=== PATIENT | male | born 1940 | race Caucasian/White ===

== ENCOUNTER 2018-12-04 12:45 | Day surgery (SDC) | payer MEDICARE, OTHER ==
[~2018-12-04] VITALS: Ht 180.3 cm; Wt 100.9 kg
[~2018-12-04 12:45] MED LIST: AMLO10 PO; ANORO ELLIPTA1 EACH INH; AVANDIA; BENZ100A PO; Bupropion Xl150 MG PO; DOXY100 PO; FLUSAL2505 IH; FURO20 PO; GLYBURIDE; HYDACE5 PO; HYDGUAL120 PO; INSULANPEN SC; LIPITOR; LO-DOSE ASPIRIN81 MG PO; LOSA50 PO; LOSHYD; LOSHYD100 PO; METF500 PO; METO50 PO; NAPR500 PO; Novolog100 UNIT/2 SC; OXYB5; POTCHL20ER PO; PRAV40 PO; ROSI2 PO; SPIR25; SPIR25 PO; TAMS.4ER PO; TEMA30 PO; TESTOSTERONE; Ventolin5 MG/1 ML INH
[2018-12-04] MEDS ORDERED: NEBI10 (13:39)
== END 2018-12-04 15:06 | disposition home or self-care (01) ==
LOC: ORSCSDS 12:45
PROVIDERS: Internal Medicine Gastroenterology
PROC: 0D757ZZ Dilation of Esophagus, Via Natural or Artificial Opening (ICD-10-PCS; principal; 2018-12-04 14:00)
PROC: 0DB68ZX Excision of Stomach, Via Natural or Artificial Opening Endoscopic, Diagnostic (ICD-10-PCS; principal; 2018-12-04 14:00)
PROC: 0DB58ZX Excision of Esophagus, Via Natural or Artificial Opening Endoscopic, Diagnostic (ICD-10-PCS; principal; 2018-12-04 14:00)
DX: R13.14 Dysphagia, pharyngoesophageal phase (principal); K22.70 Barrett's esophagus without dysplasia; K29.70 Gastritis, unspecified, without bleeding; K22.2 Esophageal obstruction; I25.10 Atherosclerotic heart disease of native coronary artery without angina pectoris; I10 Essential (primary) hypertension; G47.33 Obstructive sleep apnea (adult) (pediatric); F17.210 Nicotine dependence, cigarettes, uncomplicated; Z79.899 Other long term (current) drug therapy; Z79.82 Long term (current) use of aspirin
CPT/HCPCS: 82947; 87081; 88305; 88312; J2704; J7120

== ENCOUNTER 2020-07-16 13:38 | Inpatient (IN) | payer MEDICARE, OTHER ==
[~2020-07-16] VITALS: Ht 182 cm; Wt 87.5 kg
[~2020-07-16 13:38] MED LIST changes: -Bupropion Xl150 MG PO; -INSULANPEN SC; -LOSA50 PO; -METF500 PO; -Novolog100 UNIT/2 SC; -SPIR25 PO; -TAMS.4ER PO; -TEMA30 PO
[2020-07-16 15:23] LABS: BASOPHILS ABSOLUTE AUTO 0.05 K/mm3 (0.00-0.23); BASOPHILS PERCENT AUTO 0 % (0-2); EOSINOPHILS PERCENT AUTO 0 % (0-6); Hemoglobin 20.6 g/dL (13.5-17.5); IMMATURE GRAN ABSOLUTE AUTO 0.14 K/mm3 (0.00-0.10); IMMATURE GRAN PERCENT AUTO 1 % (0-1); LYMPHOCYTES ABSOLUTE AUTO 0.45 K/mm3 (0.84-5.20); LYMPHOCYTES PERCENT AUTO 3 % (21-46); MONOCYTES PERCENT AUTO 6 % (4-13); Mean Corpuscular HGB 30.6 pg (26.0-34.0); Mean Corpuscular HGB Conc 32.1 g/dL (31.5-36.5); Mean Corpuscular Volume 95 fL (80-100); Mean Platelet Volume 9.5 fL (9.1-12.4); NEUTROPHILS ABSOLUTE AUTO 11.71 K/mm3 (1.96-9.15); NEUTROPHILS PERCENT AUTO 89 % (41-73); Platelet Count 223 K/mm3 (150-400); RDW Coefficient Variation 14.6 % (11.7-14.2); RDW Standard Deviation 48.2 fL (35.1-46.3); Red Blood Cell Count 6.73 M/mm3 (4.30-5.90); White Blood Cell Count 13.15 K/mm3 (4.00-11.30)
[2020-07-16 15:27] LABS: Hematocrit 64.2 % (37.0-53.0)
[2020-07-16 15:45] LABS: Magnesium, Blood 2.5 mg/dL (1.6-2.4)
[2020-07-16 15:46] LABS: Troponin I 0.024 ng/mL (0.000-0.040)
[2020-07-16 15:47] LABS: Albumin, Blood 2.9 g/dL (3.4-5.0); Albumin/Globulin Ratio 0.6 (0.8-1.8); Bilirubin, Total 1.2 mg/dL (0.1-1.0); Bun/Creatinine Ratio 43.9 (12.0-20.0); Calcium, Blood 10.7 mg/dL (8.5-10.1); Creatinine, Blood 1.64 mg/dL (0.60-1.20); Globulin, Blood 4.6 g/dL (2.2-4.0); Potassium, Blood 4.3 mmol/L (3.5-5.5); Total Protein, Blood 7.5 g/dL (6.4-8.2)
[2020-07-16 16:01] LABS: Creatine Kinase MB 8.7 ng/mL (0.0-3.6); Creatine Kinase MB Index 2.5 (0.0-4.0)
[2020-07-16 16:15] LABS: Base Excess Venous -13.4 mmol/L; Bicarbonate Venous 14.7 mmol/L (24.0-30.0); PCO2 Venous 37.6 mmHg (38-42)
[2020-07-16] MEDS ORDERED: TAMS.4ER PO (16:19)
[2020-07-16] MEDS ORDERED: LOSARTAN POTAS100 M1 PO (16:19)
[2020-07-16] MEDS ORDERED: CEPH500 PO (16:20)
[2020-07-16] MEDS ORDERED: NEBI10 PO (16:20)
[2020-07-16] MEDS ORDERED: INVOKANA300 MG PO (16:20)
[2020-07-16] MEDS ORDERED: OXYB5 PO (16:20)
[2020-07-16] MEDS ORDERED: TEMA30 PO (16:21)
[2020-07-16] MEDS ORDERED: SPIR25 PO (16:21)
[2020-07-16] MEDS ORDERED: BUPR150ER PO (16:48)
[2020-07-16] MEDS ORDERED: GLUCOPHAGE1000 M1 PO (16:48)
[2020-07-16] MEDS ORDERED: GABA300 PO (16:49)
[2020-07-16] MEDS ORDERED: ALBU2.5V5 NEB (16:51)
[2020-07-16] MEDS ORDERED: NOVOLOG FL100 UNIT/2 SC (16:54)
[2020-07-16] MEDS ORDERED: BASAGLAR K100 UNIT/1 SC (16:55)
[2020-07-16 18:32] LABS: Albumin, Blood 2.6 g/dL (3.4-5.0); Anion Gap 21 mmol/L (6-16); Blood Urea Nitrogen 68 mg/dL (8-24); Bun/Creatinine Ratio 44.4 (12.0-20.0); CO2, Blood 15 mmol/L (21-32); Calcium, Blood 9.6 mg/dL (8.5-10.1); Chloride, Blood 109 mmol/L (98-108); Creatinine, Blood 1.53 mg/dL (0.60-1.20); Glomerular Filtration Rate 47 (60-); Glucose, Blood 300 mg/dL (70-99); Potassium, Blood 4.6 mmol/L (3.5-5.5); Sodium, Blood 145 mmol/L (136-145)
[2020-07-16 19:04] LABS: Adenovirus Not Detected (NOT DETECT); Coronavirus 229E Not Detected (NOT DETECT); Coronavirus HKU1 Not Detected (NOT DETECT); Coronavirus NL63 Not Detected (NOT DETECT); Coronavirus OC43 Not Detected (NOT DETECT)
[2020-07-16 19:12] LABS: Human Metapneumovirus Not Detected (NOT DETECT); Human Rhinovirus/Enterovirus Not Detected (NOT DETECT); Influenza A/H1 Not Detected (NOT DETECT); SARS-Cov-2 (COVID-19), BioFire Detected (NOT DETECT)
[2020-07-16 19:13] LABS: Bordetella pertussis Not Detected (NOT DETECT); Chlamydophila pneumoniae Not Detected (NOT DETECT); Influenza A/2009-H1 Not Detected (NOT DETECT); Influenza A/H3 Not Detected (NOT DETECT); Influenza B Not Detected (NOT DETECT); Mycoplasma pneumoniae Not Detected (NOT DETECT); Parainfluenza Virus 1 Not Detected (NOT DETECT); Parainfluenza Virus 2 Not Detected (NOT DETECT); Parainfluenza Virus 3 Not Detected (NOT DETECT); Parainfluenza Virus 4 Not Detected (NOT DETECT); Respiratory Syncytial Virus Not Detected (NOT DETECT)
--- NOTE | 2020-07-16 19:40 | NUR ---
ASSUMED CARE REPORT RECEIVED FROM MAGDIEL CEE. PT TRANSFERRED TO 310. NO ACUTE DISTRESS NOTED. APPEARS COMFORTABLE. CALL LIGHT, POSSESSIONS IN REACH, BED IN LOW POSITION WITH ALARMS ON. CONTINUE TO MONITOR.
--- NOTE | 2020-07-16 20:45 | NUR ---
SPOKE TO LAURENT DUGAN REGARDING PT'S BP READINGS, CBG LEVELS AND CLARIFIED LAB ORDERS. STATED TO ADMINISTER 2100 MEDS ORDERED AND RE-CHECK BP. ORDERS ALSO RECEIVED FOR INSULIN COVERAGE. CONTINUE TO MONITOR.
--- NOTE | 2020-07-17 02:45 | NUR ---
THIS RN NOTIFIED OF PT'S 18 BEAT RUN OF V-TACH BY [employer] PROGRAM SPECIALIST. JOSE CARLOS Root RN PROVIDING COVERAGE, IN TO SEE PT. REPORTS PT BEING ASYMPTOMATIC, HR RETURNED TO SR WITH PVCS, PACS, AND BBB, RATE OF 75. ON THIS RN'S ASSESSMENT, PT APPEARS TO BE SLEEPING COMFORTABLY, NO ACUTE DISTRESS NOTED. CONTINUE TO MONITOR.
[2020-07-17 04:56] LABS: BASOPHILS ABSOLUTE AUTO 0.03 K/mm3 (0.00-0.23); BASOPHILS PERCENT AUTO 0 % (0-2); EOSINOPHILS PERCENT AUTO 0 % (0-6); Hemoglobin 18.6 g/dL (13.5-17.5); IMMATURE GRAN ABSOLUTE AUTO 0.11 K/mm3 (0.00-0.10); IMMATURE GRAN PERCENT AUTO 1 % (0-1); LYMPHOCYTES ABSOLUTE AUTO 0.43 K/mm3 (0.84-5.20); LYMPHOCYTES PERCENT AUTO 4 % (21-46); MONOCYTES ABSOLUTE AUTO 0.48 K/mm3 (0.16-1.47); MONOCYTES PERCENT AUTO 4 % (4-13); Mean Corpuscular HGB 30.5 pg (26.0-34.0); Mean Corpuscular HGB Conc 32.8 g/dL (31.5-36.5); Mean Corpuscular Volume 93 fL (80-100); Mean Platelet Volume 9.4 fL (9.1-12.4); NEUTROPHILS ABSOLUTE AUTO 11.03 K/mm3 (1.96-9.15); NEUTROPHILS PERCENT AUTO 91 % (41-73); Platelet Count 184 K/mm3 (150-400); RDW Coefficient Variation 13.8 % (11.7-14.2); RDW Standard Deviation 47.8 fL (35.1-46.3); White Blood Cell Count 12.08 K/mm3 (4.00-11.30)
[2020-07-17 04:57] LABS: Hematocrit 56.7 % (37.0-53.0)
[2020-07-17 05:17] LABS: Troponin I 0.045 ng/mL (0.000-0.040)
[2020-07-17 05:18] LABS: Albumin, Blood 2.3 g/dL (3.4-5.0); Anion Gap 12 mmol/L (6-16); Blood Urea Nitrogen 64 mg/dL (8-24); Bun/Creatinine Ratio 46.7 (12.0-20.0); CO2, Blood 21 mmol/L (21-32); Calcium, Blood 9.2 mg/dL (8.5-10.1); Chloride, Blood 115 mmol/L (98-108); Creatinine, Blood 1.37 mg/dL (0.60-1.20); Glomerular Filtration Rate 53 (60-); Glucose, Blood 173 mg/dL (70-99); Phosphorus, Blood 3.2 mg/dL (2.5-4.9); Sodium, Blood 148 mmol/L (136-145)
--- NOTE | 2020-07-17 07:00 | NUR ---
SHIFT SUMMARY PT APPEARS TO BE RESTING COMFORTABLY, IN NO ACUTE DISTRESS. VS REVIEWED, PT HYPERTENSIVE, OTHER VS WNL. O2 SATS STABLE ON RA. NO FURTHER CARDIAC EVENTS REPORTED, NO C/O CP, PRESSURE OR SOB. PT HAS SLEPT T/O MUCH OF THE NIGHT. NO C/O PAIN. NO ACUTE NEEDS ASSESSED AT THIS TIME. CALL LIGHT, POSSESSIONS IN REACH, BED IN LOW POSITION WITH ALARMS ON. REPORT GIVEN TO MAGDIEL STANLEY.
--- NOTE | 2020-07-17 18:45 | NUR ---
PT RESTING IN BED AFTER MEDICATION ADMIN AND DINNER. PT REMAINS FRUSTRATED OVER HIS NECTAR THICK FLUID ORDER AND PUREED DIET. PT MAKES NO COMPLIANTS OF SOB THIS SHIFT, IS ALERT AND ORIENTED X3 (NOT TO LOCATION), IV RUNNING AND WNL, BED IN LOW POSITION AND CALL LIGHT WITHIN REACH. STAFF WILL CONT. TO MONITOR.
--- NOTE | 2020-07-17 19:15 | NUR ---
ASSUMED CARE RECEIVED REPORT FROM MAGDIEL STANLEY. PT LYING IN BED WATCHING TV, APPEARS COMFORTABLE, RESPS E/U. NO ACUTE NEEDS ASSESSED AT THIS TIME. CALL LIGHT, POSSESSIONS IN REACH, CONTINUE TO MONITOR.
--- NOTE | 2020-07-17 21:18 | NUR ---
PT BEHAVIOR SCOTTIE WILLIAMSON MANUFACTURING TEST ENGINEER, REPORTED PT HAD BEEN POSING VERBAL THREATS, STATING HE WAS GOING TO "THROW THE PHONE AT THE WINDOW AND BREAK IT." PT CONTINUOUSLY SHOUTING AND USING PROFANITY TOWARDS MANUFACTURING TEST ENGINEER WHILE SHE WAS IN ROOM PROVIDING CARE. THIS RN PREPARING TO ENTER PT ROOM TO ADMINISTER MEDICATIONS. RN DONNING PPE, PT YELLING AT THIS RN FROM INSIDE ROOM, STATING "WHAT ARE YOU DOING, COME ON IN HERE!" REASSURED PT THAT THIS RN IS PREPARING TO ENTER ROOM; PT CONTINUING TO SHOUT AT THIS RN, STATING, "YOU DON'T WANT TO COME IN HERE, BECAUSE YOU DON'T LIKE YOUR JOB!" UPON ENTERING ROOM, PT USING PROFANITY, STATING THAT HE IS ANGRY AT THIS RN, INTENDS TO FILE A COMPLAINT, AND THAT HE DOESN'T WANT THIS RN TO PROVIDE CARE. WHEN ASKED THE REASON FOR HIS FRUSTRATION, PT STATED, USING PROFANITY, "BECAUSE I CAN'T GET ANY SERVICE, I'VE BEEN ASKING FOR WATER THIS WHOLE TIME." WHILE ADMINISTERING MEDICATIONS, PT DEMANDING MORE SNACKS, STATING, "WHEN AM I GONNA GET IT?!" USED THERAPEUTIC COMMUNICATION AND ACTIVE LISTENING; REMINDED PT OF PHYSICIAN'S ORDERS FOR THICKENED LIQUIDS D/T ASPIRATION RISK, AND THAT MANUFACTURING TEST ENGINEER IS BRINGING REQUESTED ITEMS. PT REQUESTING TO SPEAK TO PHYSICIAN NOW, INFORMED PT THAT DOCTOR WOULD BE HERE IN THE MORNING TO DISCUSS CONCERNS R/T DIET ORDER, AND ENCOURAGED PT TO VOICE HIS FRUSTRATIONS AT THAT TIME. THIS RN SETTING LIMITS ON PT'S BEHAVIOR, REMINDING HIM THERE ARE OTHER PT'S THAT THIS RN AND MANUFACTURING TEST ENGINEER ARE PROVIDING CARE TO. PT CONTINUING TO USE PROFANITY TOWARDS THIS RN, STATING, "I DON'T CARE ABOUT THE OTHER PT'S." THIS RN REMINDED PT THAT BEHAVIOR IS INAPPROPRIATE. HAYLEE YEUNG, PAINT ROLLER WINDER, ALSO INFORMED OF PT BEHAVIOR.
--- NOTE | 2020-07-17 22:38 | NUR ---
NOTIFIED DR. EVANGELISTA OF PT'S CBG OF 340. ORDERS RECEIVED. CONTINUE TO MONITOR.
[2020-07-18 04:51] LABS: BASOPHILS ABSOLUTE AUTO 0.01 K/mm3 (0.00-0.23); BASOPHILS PERCENT AUTO 0 % (0-2); EOSINOPHILS ABSOLUTE AUTO 0.01 K/mm3 (0.00-0.68); EOSINOPHILS PERCENT AUTO 0 % (0-6); Hematocrit 47.6 % (37.0-53.0); Hemoglobin 15.8 g/dL (13.5-17.5); IMMATURE GRAN ABSOLUTE AUTO 0.04 K/mm3 (0.00-0.10); IMMATURE GRAN PERCENT AUTO 1 % (0-1); LYMPHOCYTES ABSOLUTE AUTO 0.48 K/mm3 (0.84-5.20); LYMPHOCYTES PERCENT AUTO 8 % (21-46); MONOCYTES ABSOLUTE AUTO 0.33 K/mm3 (0.16-1.47); MONOCYTES PERCENT AUTO 5 % (4-13); Mean Corpuscular HGB 30.4 pg (26.0-34.0); Mean Corpuscular HGB Conc 33.2 g/dL (31.5-36.5); Mean Corpuscular Volume 92 fL (80-100); Mean Platelet Volume 9.4 fL (9.1-12.4); NEUTROPHILS ABSOLUTE AUTO 5.27 K/mm3 (1.96-9.15); NEUTROPHILS PERCENT AUTO 86 % (41-73); Platelet Count 163 K/mm3 (150-400); RDW Coefficient Variation 13.9 % (11.7-14.2); RDW Standard Deviation 47.1 fL (35.1-46.3); White Blood Cell Count 6.14 K/mm3 (4.00-11.30)
[2020-07-18 05:12] LABS: Anion Gap 5 mmol/L (6-16); Blood Urea Nitrogen 48 mg/dL (8-24); Bun/Creatinine Ratio 45.7 (12.0-20.0); CO2, Blood 24 mmol/L (21-32); Calcium, Blood 9.1 mg/dL (8.5-10.1); Chloride, Blood 119 mmol/L (98-108); Creatinine, Blood 1.05 mg/dL (0.60-1.20); Glomerular Filtration Rate >60 (60-); Glucose, Blood 209 mg/dL (70-99); Potassium, Blood 4.2 mmol/L (3.5-5.5); Sodium, Blood 148 mmol/L (136-145)
--- NOTE | 2020-07-18 06:30 | NUR ---
THIS RN IN PT ROOM ADMINISTERING MEDICATIONS, OVEN ATTENDANT OBTAINING VS. PT O2 SATS 88-91% ON RA, O2 APPLIED AT 5L/NC, SATS INCREASED TO 93%. PT HYPERTENSIVE. DR. PALACIOS NOTIFIED OF THE ABOVE, ORDERS RECEIVED. CONTINUE TO MONITOR.
--- NOTE | 2020-07-18 06:50 | NUR ---
SHIFT SUMMARY PT ASLEEP, APPEARS TO BE BREATHING EASIER. SLEPT T/O MUCH OF NIGHT. NO CARDIAC EVENTS REPORTED OVERNIGHT, PT CONTINUES TO BE EMOTIONALLY LABILE, IRRITABLE. NS D/C'D PER ORDERS. CHANGED AND REPOSITIONED TOLERATED, PAIN MANAGED WITH MEDS PER EMAR. NO ACUTE NEEDS ASSESSED AT THIS TIME. CALL LIGHT, POSSESSIONS IN REACH, BED IN LOW POSITION WITH ALARMS ON. REPORT GIVEN TO MAGDIEL STANLEY.
--- NOTE | 2020-07-18 18:50 | NUR ---
PT RESTING IN BED AFTER DINNER AND PM MEDICATION ADMIN. PT IS ALERT AND ORIENTED X4, ALTHOUGH THERE IS UNDERLYING FORGETFULNESS HE WILL ASK THE SAME QUESTIONS OFTEN. PT IS DEMANDING BUT REMAINS COMPLIANT AND COOPERATIVE. IV LINE SL AND WNL. PT MAKES NO COMPLAINTS AT THIS TIME AND HAS UNLABORED BREATHING.
--- NOTE | 2020-07-19 03:37 | NUR ---
SHIFT SUMMARY PATIENT HAD NO ACUTE CHANGES OBSERVED. AXOX 3 AND FORGETFUL. PIV REMAINS INTACT. HYDRAULIC JACK ADJUSTER REPORTS NSR 91 AND BEDREST. DENIES PAIN, SOB, AND N/V. VSS/AFEBRILE. REPORTS INSOMNIA AND MELATONIN 5 MG GIVEN PER EMAR. DROPLET PRECAUTIONS: COVID-19+. CALL LIGHT IN REACH. BED IN LOWEST POSITION. WILL CONTINUE TO MONITOR UNTIL DAY SHIFT NURSE ASSUMES CARE.
--- NOTE | 2020-07-19 17:55 | NUR ---
SUMMARY PT IS A/O X3-4, PLEASANT/COOPERATIVE AFFECT T/O DAY. DX SEPSIS, POSS PNEUM & COVID19+. HE IS GETTING IV VANCO & COVID MEDS IV REMDESEVIR, ORAL DECADRON. LUNGS ARE SOMEWHAT COARSE/DECREASED w HACKING, COARSE COUGH, PT STATE NONPROD. HE STATE NO SHORTNESS OF BREATH @ REST. HE WAS REQUESTING ALBUTEROL NEB TX'S THIS AM HOWEVER RT EXPLAIN THAT NEBS NOT INDICATED w COVID19, HE HAS ACCEPTED EXPLANATION. ST RE-EVAL SWALLOW, UPGRADE DIET TO SOFT w THIN LIQUIDS, PROVIDE SWALLOW/EATING TIPS, PT HAS HAD NO SWALLOWING ISSUES TODAY. HE PARTICIPATED w PT/OT, WAS UP IN CHAIR FOR A TIME TODAY. SBP HAS BEEN ELEVATED, 180'S, PRN HYDRALAZINE GIVEN THIS AFTERNOON. HE IS AFEBRILE.
--- NOTE | 2020-07-20 04:31 | NUR ---
SHIFT SUMMARY- PT. A&O, FORGETFUL AT TIMES. HAD NO ACUTE EVENTS OVERNIGHT, ON RA HAS OCCASIONAL COUGH, NO SOB NOTED. PT. ASLEEP MOST OF THE NIGHT, NO APPARENT DISTRESS NOTED. NO COMPLAINTS OF PAIN OR DISCOMFORT THIS SHIFT. BP ELEVATED THIS AM, MEDICATED PER EMAR. PT. INCONT, ATTENDS IN PLACE AND REPOSITIONED FOR COMFORT ALSO PRN. CALL LIGHT WITHIN REACH AND SIDE RAILS UPX2. WILL CONT TO MONITOR.
[2020-07-20 05:41] LABS: Hematocrit 49.1 % (37.0-53.0); Mean Corpuscular HGB 29.7 pg (26.0-34.0); Mean Corpuscular HGB Conc 32.6 g/dL (31.5-36.5); Mean Corpuscular Volume 91 fL (80-100); Mean Platelet Volume 9.7 fL (9.1-12.4); Platelet Count 165 K/mm3 (150-400); RDW Coefficient Variation 13.5 % (11.7-14.2); RDW Standard Deviation 45.9 fL (35.1-46.3); Red Blood Cell Count 5.38 M/mm3 (4.30-5.90); White Blood Cell Count 6.48 K/mm3 (4.00-11.30)
[2020-07-20 05:50] LABS: Anion Gap 7 mmol/L (6-16); Blood Urea Nitrogen 28 mg/dL (8-24); Bun/Creatinine Ratio 31.7 (12.0-20.0); CO2, Blood 25 mmol/L (21-32); Calcium, Blood 9.6 mg/dL (8.5-10.1); Chloride, Blood 111 mmol/L (98-108); Creatinine, Blood 0.88 mg/dL (0.60-1.20); Glomerular Filtration Rate >60 (60-); Glucose, Blood 119 mg/dL (70-99); Potassium, Blood 4.2 mmol/L (3.5-5.5); Sodium, Blood 143 mmol/L (136-145)
[2020-07-20] MEDS ORDERED: LOSARTAN-HCTZ1 EACH PO (08:09)
[2020-07-20] MEDS ORDERED: HYDCHL25 PO (08:10)
[2020-07-20] MEDS ORDERED: ALBU90OI INH (08:14)
[2020-07-20] MEDS ORDERED: OMEP20ER PO (08:14)
[2020-07-20] MEDS ORDERED: ALFU10 PO (08:17)
--- NOTE | 2020-07-20 19:35 | NUR ---
SUMMARY PT IS A/O X4, PLEASANT/COOPERATIVE AFFECT. STATE WEAKNESS/FATIGUE CONTINUE HOWEVER HAVE IMPROVED SOMEWHAT. HE IS UP 1 ASSIST, ORIENTOR ASSISTED HIM w SHOWER TODAY. DR GOMEZ ROUNDED/ASSESSED PT, STATE PROBABLE D/C TOMORROW ON HOME IV ANTIBX, ORDER PICC. CHARGE PLACED RAMÓN THIS AFTERNOON. COVID19+, IV REMDESIVIR & PO DECADRON GIVEN TODAY. IV ANTIBX VANCO CONTINUES. LUNGS CONTINUE SOMEWHAT COARSE w OCCASIONAL COUGH HOWEVER SEEM TO BE IMPROVING, @ X'S FAINT EXP WHEEZE. BIOX 90-93% RA. CARE MANAGERS ARRANGING HOME ANTIBX, PT SON VANESA CALLED, STATE HE WILL ASSIST PT @ HOME & WILL BE HIS TRANSPORTATION TOMORROW, # ON WHITE BOARD. ELEVATED BP CONTINUES TODAY, DR GOMEZ ADD NEW BP MED. BLOOD SUGARS CONTINUE ELEVATED, MED SS + LONG ACTING INSULIN ARE ORDERED.
[2020-07-20 21:10] LABS: Vancomycin, Trough 19.7 ug/mL (5.0-10.0)
--- NOTE | 2020-07-21 03:50 | NUR ---
SHIFT SUMMARY: PATIENT IS A&OX4, PATIENT REPORTS FEELING A LITTLE STRONGER TODAY BUT REFUSES GETTING UP TO THE CHAIR. PATIENT WAS FOUND INC. OF URINE VS SPILLING URINAL. RICHIE CARE GIVEN AND LINENS CHANGED. BP'S HAVE BEEN 148/86 AND 170/90, NO PRN HYDRALAZINE GIVEN PER PARAMETERS. TOLERATING DIET WELL, ASPIRATION PRECAUTIONS MAINTAINED, NO DIFFICULTY SWALLOWING PILLS. ENHANCED PRECAUTIONS ARE MAINTAINED FOR COVID+ PATIENT.
--- NOTE | 2020-07-21 17:34 | NUR ---
SHIFT SUMMARY- PT IS A/O, PLESANT AND COOPERATIVE. HE IS EATING AND DRINKING WELL. HE IS RECIEVING IV ABX. HE HAS A NON PRODUCTIVE COUGH. HE WILL LIKELY DISCHARGE TOMORROW, AND CONTINUE ABX ON AN OUTPT BASIS. HIS BED IS IN THE LOW POSITION AND CALL LIGHT IS WITHIN REACH.
[2020-07-21 21:41] LABS: Vancomycin, Trough 23.2 ug/mL (5.0-10.0)
--- NOTE | 2020-07-22 05:39 | NUR ---
SHIFT SUMMARY PATIENT ALERT AND ORIENTED. HAD NO COMPLAINTS OF PAIN OVERNIGHT. PRN HYDRALAZINE ADMINISTERED THIS MORNING FOR SBP > 170. PATIENT WAS CONTINENT/INCONTINENT AND REQUIRED SEVERAL BED CHANGES. CONDOM CATHETER APPLIED TO HELP PATIENT OBTAIN HIS GOAL OF BETTER SLEEP TONIGHT. PICC LINE PATENT AND FLUSHED. BED IN LOWEST POSITION WITH WHEELS LOCKED AND ALARM ON. CALL LIGHT WITHIN REACH. REPORT GIVEN TO ONCOMING RN.
[2020-07-22 06:02] LABS: Vancomycin, Random 17.6 ug/mL
[2020-07-22] MEDS ORDERED: AMLO5 PO (13:14)
[2020-07-22] MEDS ORDERED: DEXA6 PO (13:15)
[2020-07-22] MEDS ORDERED: VISBIOME 112.51 EACH PO (13:17)
[2020-07-22] MEDS ORDERED: Vancomycin1 GM/2501 IV (13:17)
[2020-07-22] MEDS ORDERED: VITAMIN D31000 UNI1 PO (13:18)
--- NOTE | 2020-07-22 13:53 | NUR ---
HOME HEALTH SET-UP AND PATIENT IS OKAY TO DISCHARGE, PER JORDY FABIAN.
--- NOTE | 2020-07-22 14:48 | NUR ---
DISCHARGED HOME WITH PICC LINE IN PLACE. VERBALIZED UNDERSTANDING OF DISCHARGE PAPERWORK AND ALL QUESTIONS ANSWERED. ALL PERSONAL BELONGINGS IN PATIENT POSSESSION AT TIME OF DISCHARGE.
== END 2020-07-22 14:41 | disposition home health service (06) | DRG 871 ==
LOC: ER 13:38 → MEDS 16:36
PROVIDERS: Emergency Medicine; Internal Medicine; Nurse Practitioner Acute Care; Pharmacist; ADMIT Internal Medicine
PROC: XW043E5 Introduction of Remdesivir Anti-infective into Central Vein, Percutaneous Approach, New Technology Group 5 (ICD-10-PCS; principal; 2020-07-16)
DX: A41.89 Other specified sepsis (principal); G92 Toxic encephalopathy; J12.82 Pneumonia due to coronavirus disease 2019; U07.1 COVID-19; J13 Pneumonia due to Streptococcus pneumoniae; E87.2 Acidosis; N17.9 Acute kidney failure, unspecified; R65.20 Severe sepsis without septic shock; E86.0 Dehydration; F32.9 Major depressive disorder, single episode, unspecified; G31.84 Mild cognitive impairment of uncertain or unknown etiology; G47.00 Insomnia, unspecified; G47.33 Obstructive sleep apnea (adult) (pediatric); I10 Essential (primary) hypertension; I25.10 Atherosclerotic heart disease of native coronary artery without angina pectoris; J44.9 Chronic obstructive pulmonary disease, unspecified; K59.00 Constipation, unspecified; N40.0 Benign prostatic hyperplasia without lower urinary tract symptoms; R13.10 Dysphagia, unspecified; Z95.1 Presence of aortocoronary bypass graft; Z79.01 Long term (current) use of anticoagulants; W18.30XA Fall on same level, unspecified, initial encounter; Z87.891 Personal history of nicotine dependence
CPT/HCPCS: 0202U; 36415; 36569; 70450; 71045; 71046; 80048; 80053; 80069; 80202; 82550; 82553; 82803; 82947; 83605; 83735; 83880; 84145; 84484; 85025; 85027; 85379; 85651; 87040; 87077; 87186; 92526; 92610; 93005; 93010; 94640; 94760; 96365; 96366; 96367; 96375; 97110; 97116; 97161; 97530; 99285-25; A9270; C1751; J0456; J0696; J1650; J3010; J3370; J7030; J7050

== ENCOUNTER 2020-08-10 20:53 | Inpatient (IN) | payer MEDICARE, OTHER ==
[~2020-08-10] VITALS: Ht 170.2 cm; Wt 87.1 kg
[~2020-08-10 20:53] MED LIST changes: +ALBU2.5V5 NEB; +ALBU90OI INH; +ALFU10 PO; +AMLO5 PO; +BASAGLAR K100 UNIT/1 SC; +BUPR150ER PO; +CEPH500 PO; +DEXA6 PO; +GABA300 PO; +GLUCOPHAGE1000 M1 PO; +HYDCHL25 PO; +INVOKANA300 MG PO; +LOSARTAN POTAS100 M1 PO; +LOSARTAN-HCTZ1 EACH PO; +NEBI10 PO; +NOVOLOG FL100 UNIT/2 SC; +OMEP20ER PO; +OXYB5 PO; +SPIR25 PO; +TAMS.4ER PO; +TEMA30 PO; +VISBIOME 112.51 EACH PO; +VITAMIN D31000 UNI1 PO; +Vancomycin1 GM/2501 IV
[2020-08-10] MEDS ORDERED: NEBI10 PO (21:13)
[2020-08-10 21:43] LABS: BASOPHILS ABSOLUTE AUTO 0.07 K/mm3 (0.00-0.23); BASOPHILS PERCENT AUTO 1 % (0-2); EOSINOPHILS ABSOLUTE AUTO 0.12 K/mm3 (0.00-0.68); EOSINOPHILS PERCENT AUTO 2 % (0-6); Hematocrit 44.1 % (37.0-53.0); IMMATURE GRAN ABSOLUTE AUTO 0.06 K/mm3 (0.00-0.10); IMMATURE GRAN PERCENT AUTO 1 % (0-1); LYMPHOCYTES ABSOLUTE AUTO 0.51 K/mm3 (0.84-5.20); LYMPHOCYTES PERCENT AUTO 9 % (21-46); MONOCYTES ABSOLUTE AUTO 0.29 K/mm3 (0.16-1.47); MONOCYTES PERCENT AUTO 5 % (4-13); Mean Corpuscular HGB 30.7 pg (26.0-34.0); Mean Corpuscular Volume 90 fL (80-100); Mean Platelet Volume 8.9 fL (9.1-12.4); NEUTROPHILS ABSOLUTE AUTO 4.74 K/mm3 (1.96-9.15); NEUTROPHILS PERCENT AUTO 82 % (41-73); Platelet Count 137 K/mm3 (150-400); RDW Coefficient Variation 14.8 % (11.7-14.2); RDW Standard Deviation 49.6 fL (35.1-46.3); Red Blood Cell Count 4.88 M/mm3 (4.30-5.90); White Blood Cell Count 5.79 K/mm3 (4.00-11.30)
[2020-08-10 22:00] LABS: Alanine Aminotransfer (ALT/SGP 24 U/L (12-78); Albumin, Blood 2.3 g/dL (3.4-5.0); Albumin/Globulin Ratio 0.7 (0.8-1.8); Alk Phos 62 U/L (50-136); Anion Gap 6 mmol/L (6-16); Aspartate Aminotrans (AST/SGOT 16 U/L (12-37); Bilirubin, Total 0.6 mg/dL (0.1-1.0); Blood Urea Nitrogen 14 mg/dL (8-24); Bun/Creatinine Ratio 14.6 (12.0-20.0); CO2, Blood 25 mmol/L (21-32); Calcium, Blood 9.4 mg/dL (8.5-10.1); Chloride, Blood 105 mmol/L (98-108); Creatinine, Blood 0.96 mg/dL (0.60-1.20); Globulin, Blood 3.1 g/dL (2.2-4.0); Glomerular Filtration Rate >60 (60-); Glucose, Blood 110 mg/dL (70-99); Potassium, Blood 4.1 mmol/L (3.5-5.5); Sodium, Blood 136 mmol/L (136-145); Total Protein, Blood 5.4 g/dL (6.4-8.2); Troponin I <0.015 ng/mL (0.000-0.040)
[2020-08-11 00:02] LABS: Influenza A, PCR NEGATIVE (NEGATIVE); Influenza B, PCR NEGATIVE (NEGATIVE); Resp Syncytial Virus, PCR NEGATIVE (NEGATIVE)
[2020-08-11 00:04] LABS: SARS-Cov-2 (COVID-19) PCR, MMC POSITIVE (NEGATIVE)
[2020-08-11 05:19] LABS: Source, Urine Voided
[2020-08-11 05:22] LABS: Bilirubin, Urine Neg (Neg); Blood, Urine Neg (Neg); Glucose Qualitative, Urine Neg (Neg); Ketones, Urine Neg (Neg); Leukocyte Esterase, Urine Neg (Neg); Nitrite, Urine Neg (Neg); Protein, Urine Neg (Neg); Urobilinogen, Urine NORM (Normal)
[2020-08-11 05:45] LABS: Appearance, Urine Clear (Clear); Color, Urine Yellow (P-Yellow)
--- NOTE | 2020-08-11 06:20 | NUR ---
SHIFT SUMMARY NEW ER ADMIT THIS SHIFT (214), NO ACUTE CHANGES SINCE ASSUMING CARE, PT HAS BEEN VERY WEAK AND SOB W/ACTIVITY, 1 ASSIST W/FWW TO USE URINAL @ BEDSIDE, AFEBRILE SINCE ASSUMING CARE, BEDRESTING W/BED ALARM ACTIVE, WILL CONT TO MONITOR UNTIL REPORT TO DAY RN.
--- NOTE | 2020-08-11 17:15 | NUR ---
PT AOX3 AND COOPERATIVE OF CARE. PT WAS VERY SLEEPY FIRST PART OF SHIFT AND DID A LOT OF RESTING. PT ALSO WAS HAVING A LOT OF TROUBLE WITH INCONTENCE AND A CONDOM CATH WAS PLACED AND HAS BEEN EFFECTIVE. PT WAS ORIGINALLY IN ROOM 307, BUT CALL LIGHT WAS NOT WORKING CORRECTLY. PT WAS THEN TRANSFERED TO 312. PT HAS BEEN TREATED FOR INCREASING CBGs. PT WAS CONCERNED IT WAS NOT HOW HE TAKES HIS INSULIN AT HOME. DR SALAZAR WAS NOTIFIED OF PT'S CONCERNS AND MADE CHANGES TO EMAR. PT HAS BEEN UP IN CHAIR FOR MEALS AND WORKED WITH PHYSICAL THERAPY WITH GAITBELT AND FRONT WHEEL WALKER. PT STATES HE IS FEELING DEPRESSED HAVING TO MAKE DECISION FOR HIS CARE AT HOME. WILL CONTINUE TO MONITOR CALL LIGHT IS WITHIN REACH.
--- NOTE | 2020-08-12 05:40 | NUR ---
PT IS ALERT, CBG AC/HS, RASH IN GROIN AREA, CONDOM CATH APPLIED FOR SKIN BREAKDOWN. PT SLEPT WELL THIS SHIFT.
[2020-08-12 08:29] LABS: BASOPHILS ABSOLUTE AUTO 0.05 K/mm3 (0.00-0.23); BASOPHILS PERCENT AUTO 1 % (0-2); EOSINOPHILS ABSOLUTE AUTO 0.27 K/mm3 (0.00-0.68); EOSINOPHILS PERCENT AUTO 5 % (0-6); Hematocrit 43.7 % (37.0-53.0); Hemoglobin 15.1 g/dL (13.5-17.5); IMMATURE GRAN ABSOLUTE AUTO 0.05 K/mm3 (0.00-0.10); IMMATURE GRAN PERCENT AUTO 1 % (0-1); LYMPHOCYTES ABSOLUTE AUTO 0.99 K/mm3 (0.84-5.20); LYMPHOCYTES PERCENT AUTO 20 % (21-46); MONOCYTES ABSOLUTE AUTO 0.56 K/mm3 (0.16-1.47); MONOCYTES PERCENT AUTO 11 % (4-13); Mean Corpuscular HGB 30.8 pg (26.0-34.0); Mean Corpuscular HGB Conc 34.6 g/dL (31.5-36.5); Mean Corpuscular Volume 89 fL (80-100); Mean Platelet Volume 9.2 fL (9.1-12.4); NEUTROPHILS ABSOLUTE AUTO 3.06 K/mm3 (1.96-9.15); NEUTROPHILS PERCENT AUTO 62 % (41-73); Platelet Count 144 K/mm3 (150-400); RDW Coefficient Variation 14.9 % (11.7-14.2); RDW Standard Deviation 48.5 fL (35.1-46.3); Red Blood Cell Count 4.91 M/mm3 (4.30-5.90); White Blood Cell Count 4.98 K/mm3 (4.00-11.30)
--- NOTE | 2020-08-12 12:41 | NUR ---
AM ASSESSMENT PT WAS VERY IRRITABLE ON ENTRY TO , C/O POOR CARE & POOR RESPONSE TO CALL SYSTEM. ISSUES & CONCERNS ADDRESSED. DR SALAZAR IN TO EXPLAIN INSULIN ORDERS & REASSURE THAT HE WILL RETURN TO HOME REGIMEN AFTER HOSP STAY. REVIEW TX'S & MEDS. DR Moe/Edna COVID19 ISOLATION PRECAUTIONS AFTER CONSULTIN w FOOD PRODUCTION MACHINE OPERATOR. REVERSING MILL ROLLER PROVIDE COMPLETE BEDBATH. ANTIFUNGAL PWDR APPLIED TO GROIN RASH. PT UP IN CHAIR MUCH OF MORNING. HE STATE NO SOB @ REST, BIOX 90% RA, LUNGS CLEAR. TELE NSR @ BBB/PAC'S, DR SALAZAR D/C TELE. PT ADVOCATE IN TO SEE PT, ADDRESS ISSUES/COMPLAINTS. PT SEEMS SATISFIED @ THIS TIME, PLEASANT AFFECT.
--- NOTE | 2020-08-12 16:35 | NUR ---
PHYTHER IN FOR TX, PT AMBULATE IN LUJAN w FWW/GB, SBA. TOLERATE WELL. TRIMMER AND REINFORCER CALL TO NOTIFY PT WILL TRANSFER TO RM 302. REPORT TO frances SPANN. PT CONTINUES PLEASANT/COOPERATIVE @ THIS TIME. VSS.
--- NOTE | 2020-08-12 18:02 | NUR ---
SHIFT SUMMARY PT TRANSFERRED TO ROOM 302 FROM 312 VIA BED. PT IS ALERT AND ORIENTED X3. NO COMPLAINTS AT THIS TIME. PT EATING DINNER. NO REQUESTS. CALL LIGHT IN REACH. WILL CONTINUE TO MONITOR.
--- NOTE | 2020-08-12 19:12 | NUR ---
PER DAY RN DR. SALAZAR WOULD LIKE THE CONDOM CATH REMOVED FROM PT. PT REFUSED TO HAVE CONDOM CATH REMOVED. PT ALSO COMPLAINING THAT HE HAD BEEN WAITING FOR A BREATHING TX, EXPLAINED TO PT THAT THE TX'S ARE SCHEDULED AND THAT HE LAST RECIEVED A TX AT 1330 AND THAT HIS NEXT SCHEDULED TX WAS DUE ANYTIME. NOTIFIED RT OF PT'S COMPLAINT. PT THEN CALLED ME TO HIS ROOM AND STATED THAT HE DID NOT WANT TO BE WOKEN IN THE MORNING FOR VITALS AND THAT HE WOULD REFUSE THEM IF WE WOKE HIM. HE ALSO REQUESTED THAT HIS LABS BE DRAWN CLOSER TO BREAKFAST TIME.
--- NOTE | 2020-08-13 04:32 | NUR ---
SHIFT SUMMARY PT IRRITABLE AT START OF SHIFT. VERY PARTICULAR ABOUT HIS ROUTINES AND BECOMES UPSET WHEN STAFF CANNOT IMMEDIATELY ASSIST HIM. HOWEVER, MOOD IMPROVED THROUGHOUT THE NIGHT. PT SLEPT THROUGH MOST OF THE NIGHT. RESPIRATIONS EVEN AND UNLABORED. PT ON RA WITH O2 SATS IN THE LOW TO MID 90'S. REDNESS TO GROIN AREA, ANTIFUNGAL POWDER APPLIED. CONDOM CATH PRESENT. PT REFUSED TO HAVE CONDOM CATH REMOVED. PT ALSO REFUSED MORNING LAB AND VITALS. SEE PREVIOUS NOTE. PT HAD AN UNEVENTFUL NIGHT. WILL CONTINUE TO MONITOR.
[2020-08-13 07:04] LABS: BASOPHILS ABSOLUTE AUTO 0.08 K/mm3 (0.00-0.23); BASOPHILS PERCENT AUTO 1 % (0-2); EOSINOPHILS PERCENT AUTO 7 % (0-6); Hematocrit 42.5 % (37.0-53.0); Hemoglobin 14.8 g/dL (13.5-17.5); IMMATURE GRAN ABSOLUTE AUTO 0.04 K/mm3 (0.00-0.10); IMMATURE GRAN PERCENT AUTO 1 % (0-1); LYMPHOCYTES PERCENT AUTO 22 % (21-46); MONOCYTES ABSOLUTE AUTO 0.74 K/mm3 (0.16-1.47); MONOCYTES PERCENT AUTO 12 % (4-13); Mean Corpuscular HGB 30.8 pg (26.0-34.0); Mean Corpuscular HGB Conc 34.8 g/dL (31.5-36.5); Mean Corpuscular Volume 89 fL (80-100); Mean Platelet Volume 9.5 fL (9.1-12.4); NEUTROPHILS ABSOLUTE AUTO 3.46 K/mm3 (1.96-9.15); NEUTROPHILS PERCENT AUTO 58 % (41-73); Platelet Count 159 K/mm3 (150-400); RDW Coefficient Variation 14.6 % (11.7-14.2); RDW Standard Deviation 47.5 fL (35.1-46.3); White Blood Cell Count 6.02 K/mm3 (4.00-11.30)
[2020-08-13 07:19] LABS: Anion Gap 5 mmol/L (6-16); Blood Urea Nitrogen 28 mg/dL (8-24); Bun/Creatinine Ratio 23.5 (12.0-20.0); CO2, Blood 29 mmol/L (21-32); Calcium, Blood 9.9 mg/dL (8.5-10.1); Chloride, Blood 100 mmol/L (98-108); Creatinine, Blood 1.19 mg/dL (0.60-1.20); Glomerular Filtration Rate >60 (60-); Glucose, Blood 129 mg/dL (70-99); Potassium, Blood 3.7 mmol/L (3.5-5.5); Sodium, Blood 134 mmol/L (136-145)
--- NOTE | 2020-08-13 17:44 | NUR ---
SHIFT SUMMARY NO ACUTE CHANGES T/O SHIFT, CALM AND COOPERATIVE c CARE, A&Ox4. PT REPORTED NO DISTRESS THIS SHIFT. REQUESTED BREATHING TX X1, DENIED SOB OR PAINS, AND O2 SATURATIONS REMAINED ABOVE 90% ON RA. CBG CONTINUE TO BE INCONSISTENT, HOSPITALIST AWARE AND CHANGED PT TO HIGH SLIDING SCALE. CONDOM CATH REMOVED THIS SHIFT, PT USING URINAL OFTEN BUT HAS OCCASSIONAL INCONTINENT VOIDS. PT LIKELY TO BE DISCHARGED TOMORROW PER HOSPITALIST. PT IS CURRENTLY LYING IN BED AND APPEARS TO BE IN NO DISTRESS. CALL LIGHT IS WITHIN REACH AND BED ALARM IS ON. PT ALSO REQUESTS TO NOT BE WOKEN UP BY LAB UNTIL AFTER 0700 AND NO VITALS TO BE TAKEN UNTIL AFTER THIS TIME EITHER. WILL REPORT THIS TO ONCOMING RN. NOTE POSTED OUTSIDE OF PT DOOR.
--- NOTE | 2020-08-14 04:15 | NUR ---
SHIFT SUMMARY ADMITTED FOR ARF. FULL CODE. HOPEFUL FOR DC TODAY. XRAY PLANNED THIS AM. HX: COVID PNEUMONIA 6 WEEKS AGO. LABILE MOODS. A&O X4. REFUSING END OF SHIFT VITAL SIGNS, PREFERING TO SLEEP. NO NEW CONCERNS THIS SHIFT.
[2020-08-14] MEDS ORDERED: INSULANPEN SC (13:50)
[2020-08-14] MEDS ORDERED: FURO20 PO (13:53)
[2020-08-14] MEDS ORDERED: PROBIOTIC PO (13:54)
[2020-08-14] MEDS ORDERED: CEFP200 PO (13:55)
--- NOTE | 2020-08-14 14:34 | NUR ---
PT DISCHARGED AT APPROX 1450 VIA WHEELCHAIR BY PROCESS LINE OPERATOR. SON, VANESA, WAS PRESENT DURING DISCHARGE. DISCHARGE INSTRUCTIONS REVIEWED WITH PT AND HIS SON. PT AND SON STATED THEY HAD NO FURTHER QUESTIONS AT THIS TIME. NEEDED RX FAXED TO PHARMACY OF PT CHOICE. IV REMOVED AND SITE APPEARED WNL. PT STATED HE HAD ALL OF HIS BELONGINGS. PT NOTIFIED THAT HH WILL CONTACT HIM.
== END 2020-08-14 14:18 | disposition home health service (06) | DRG 871 ==
LOC: ER 20:53 → MEDS 23:50
PROVIDERS: Emergency Medicine; Internal Medicine; ADMIT Internal Medicine
DX: A41.9 Sepsis, unspecified organism (principal); J18.9 Pneumonia, unspecified organism; J96.01 Acute respiratory failure with hypoxia; I50.33 Acute on chronic diastolic (congestive) heart failure; U07.1 COVID-19; J44.0 Chronic obstructive pulmonary disease with (acute) lower respiratory infection; E87.1 Hypo-osmolality and hyponatremia; I11.0 Hypertensive heart disease with heart failure; E88.09 Other disorders of plasma-protein metabolism, not elsewhere classified; E11.9 Type 2 diabetes mellitus without complications; G47.33 Obstructive sleep apnea (adult) (pediatric); G47.00 Insomnia, unspecified; I25.10 Atherosclerotic heart disease of native coronary artery without angina pectoris; N40.0 Benign prostatic hyperplasia without lower urinary tract symptoms; F32.9 Major depressive disorder, single episode, unspecified; Z79.899 Other long term (current) drug therapy; Z79.4 Long term (current) use of insulin; Z87.891 Personal history of nicotine dependence
CPT/HCPCS: 0241U; 36415; 71045; 80048; 80053; 81003; 82947; 83605; 83880; 84145; 84484; 85025; 87040; 93005; 93010; 93306; 94640; 94760; 96365; 97110; 97116; 97162; 97530; 99285-25; A9270; J0456; J0696; J1650; J1940; J2543; J7050

== ENCOUNTER → 2020-12-24 | Outpatient (CLI) | payer MEDICARE, OTHER ==
[~2020-12-24] MED LIST changes: +CEFP200 PO; +INSULANPEN SC; +PROBIOTIC PO
[2020-12-24 14:38] LABS: BASOPHILS ABSOLUTE AUTO 0.04 K/mm3 (0.00-0.23); BASOPHILS PERCENT AUTO 0 % (0-2); EOSINOPHILS ABSOLUTE AUTO 0.22 K/mm3 (0.00-0.68); EOSINOPHILS PERCENT AUTO 2 % (0-6); Hematocrit 46.4 % (37.0-53.0); Hemoglobin 15.9 g/dL (13.5-17.5); IMMATURE GRAN ABSOLUTE AUTO 0.08 K/mm3 (0.00-0.10); IMMATURE GRAN PERCENT AUTO 1 % (0-1); LYMPHOCYTES PERCENT AUTO 15 % (21-46); MONOCYTES ABSOLUTE AUTO 0.56 K/mm3 (0.16-1.47); MONOCYTES PERCENT AUTO 6 % (4-13); Mean Corpuscular HGB 30.9 pg (26.0-34.0); Mean Corpuscular HGB Conc 34.3 g/dL (31.5-36.5); Mean Corpuscular Volume 90 fL (80-100); NEUTROPHILS ABSOLUTE AUTO 7.05 K/mm3 (1.96-9.15); NEUTROPHILS PERCENT AUTO 75 % (41-73); Platelet Count 191 K/mm3 (150-400); RDW Coefficient Variation 12.5 % (11.7-14.2); RDW Standard Deviation 41.2 fL (35.1-46.3); Red Blood Cell Count 5.15 M/mm3 (4.30-5.90); White Blood Cell Count 9.35 K/mm3 (4.00-11.30)
[2020-12-24 15:01] LABS: Alanine Aminotransfer (ALT/SGP 28 U/L (12-78); Albumin, Blood 3.7 g/dL (3.4-5.0); Albumin/Globulin Ratio 1.3 (0.8-1.8); Alk Phos 59 U/L (40-126); Anion Gap 8 mmol/L (6-16); Aspartate Aminotrans (AST/SGOT 23 U/L (12-37); Bilirubin, Total 0.7 mg/dL (0.1-1.0); Blood Urea Nitrogen 42 mg/dL (8-24); Bun/Creatinine Ratio 31.8 (12.0-20.0); CO2, Blood 29 mmol/L (21-32); CPK Creatine Kinase 154 U/L (39-308); Calcium, Blood 10.1 mg/dL (8.5-10.1); Chloride, Blood 101 mmol/L (98-108); Creatinine, Blood 1.32 mg/dL (0.60-1.20); Free Thyroxine 0.91 ng/dL (0.70-1.60); Globulin, Blood 2.8 g/dL (2.2-4.0); Glomerular Filtration Rate 52 (60-); Glucose, Blood 110 mg/dL (70-99); Potassium, Blood 4.3 mmol/L (3.5-5.5); Sodium, Blood 138 mmol/L (136-145); Total Protein, Blood 6.5 g/dL (6.4-8.2)
[2020-12-24 15:05] LABS: Troponin I <0.017 ng/mL (0.000-0.040)
== END | disposition home or self-care (01) ==
LOC: LAB SHORT 14:28 → LAB 14:28
PROVIDERS: General Practice
DX: R00.2 Palpitations (principal)
CPT/HCPCS: 80053; 82550; 84439; 84443; 84484; 85025

== ENCOUNTER 2021-08-29 10:51 | Emergency (ER) | payer MEDICARE, OTHER ==
[~2021-08-29] VITALS: Ht 182.9 cm; Wt 83.9 kg
[2021-08-29 12:23] LABS: BASOPHILS ABSOLUTE AUTO 0.04 K/mm3 (0.00-0.23); BASOPHILS PERCENT AUTO 1 % (0-2); EOSINOPHILS ABSOLUTE AUTO 0.13 K/mm3 (0.00-0.68); EOSINOPHILS PERCENT AUTO 2 % (0-6); Hematocrit 43.6 % (37.0-53.0); Hemoglobin 14.2 g/dL (13.5-17.5); IMMATURE GRAN ABSOLUTE AUTO 0.07 K/mm3 (0.00-0.10); IMMATURE GRAN PERCENT AUTO 1 % (0-1); LYMPHOCYTES ABSOLUTE AUTO 1.35 K/mm3 (0.84-5.20); LYMPHOCYTES PERCENT AUTO 16 % (21-46); MONOCYTES ABSOLUTE AUTO 0.64 K/mm3 (0.16-1.47); MONOCYTES PERCENT AUTO 8 % (4-13); Mean Corpuscular HGB 30.7 pg (26.0-34.0); Mean Corpuscular HGB Conc 32.6 g/dL (31.5-36.5); Mean Corpuscular Volume 94 fL (80-100); Mean Platelet Volume 9.3 fL (9.1-12.4); NEUTROPHILS ABSOLUTE AUTO 6.33 K/mm3 (1.96-9.15); NEUTROPHILS PERCENT AUTO 74 % (41-73); Platelet Count 222 K/mm3 (150-400); RDW Coefficient Variation 13.9 % (11.7-14.2); RDW Standard Deviation 47.9 fL (35.1-46.3); Red Blood Cell Count 4.63 M/mm3 (4.30-5.90); White Blood Cell Count 8.56 K/mm3 (4.00-11.30)
[2021-08-29 12:33] LABS: Source, Urine Clean Catch
[2021-08-29 12:34] LABS: Ethanol (Alcohol), Blood, Med <3 mg/dL
[2021-08-29 12:35] LABS: Alanine Aminotransfer (ALT/SGP 40 U/L (12-78); Albumin, Blood 3.2 g/dL (3.4-5.0); Albumin/Globulin Ratio 0.9 (0.8-1.8); Alk Phos 55 U/L (50-136); Anion Gap 9 mmol/L (6-16); Aspartate Aminotrans (AST/SGOT 35 U/L (12-37); Bilirubin, Total 0.5 mg/dL (0.1-1.0); Blood Urea Nitrogen 26 mg/dL (8-24); Bun/Creatinine Ratio 31.1 (12.0-20.0); CO2, Blood 27 mmol/L (21-32); Calcium, Blood 10.4 mg/dL (8.5-10.1); Chloride, Blood 102 mmol/L (98-108); Creatinine, Blood 0.84 mg/dL (0.60-1.20); Globulin, Blood 3.4 g/dL (2.2-4.0); Glomerular Filtration Rate >60 (60-); Glucose, Blood 236 mg/dL (70-99); Potassium, Blood 4.3 mmol/L (3.5-5.5); Sodium, Blood 138 mmol/L (136-145); Total Protein, Blood 6.6 g/dL (6.4-8.2)
[2021-08-29 13:22] LABS: Bilirubin, Urine Neg (Neg); Blood, Urine 1+ (Neg); Glucose Qualitative, Urine 3+ (Neg); Ketones, Urine Neg (Neg); Leukocyte Esterase, Urine Neg (Neg); Nitrite, Urine Neg (Neg); Protein, Urine 3+ (Neg); Specific Gravity, Urine 1.015 (1.003-1.022); Urobilinogen, Urine NORM (Normal)
[2021-08-29 13:37] LABS: Appearance, Urine Hazy (Clear); Color, Urine Pale Yellow (P-Yellow)
[2021-08-29 13:38] LABS: Bacteria Rare /hpf; Mucus Light (0-Heavy); Squamous Epithelial Cells Rare /hpf (Few); White Blood Cells, Urine 0-2 /hpf (0-5)
[2021-08-29 13:39] LABS: U Amphetamine Screen Not Detected; U Barbituate Screen Not Detected; U Benzodiazapine Screen Not Detected; U Cannabinoids Screen Not Detected; U Cocaine Screen Not Detected; U Methadone Screen Not Detected; U Methamphetamine Screen Not Detected; U Opiates Screen Not Detected; U Phencyclidine Screen Not Detected
[2021-08-29 13:40] LABS: U Buprenorphine Screen Not Detected; U Oxycodone Screen Not Detected; U Propoxyphene Screen Not Detected
[2021-08-30] MEDS ORDERED: [UNRECOGNIZED DRUG - CODE] PO (22:16)
[2021-08-30] MEDS ORDERED: Toviaz8 MG PO (22:17)
[2021-08-30] MEDS ORDERED: LOSARTAN POTAS100 MG PO (22:17)
[2021-08-30] MEDS ORDERED: K-Dur10 MEQ PO (22:18)
[2021-08-30] MEDS ORDERED: BASAGLAR K100 UNIT/3 SC (22:20)
== END 2021-08-29 13:50 | disposition home or self-care (01) ==
LOC: ER 10:51
PROVIDERS: Physician Assistant
DX: R78.81 Bacteremia (principal); Z88.1 Allergy status to other antibiotic agents; Z79.899 Other long term (current) drug therapy; Z79.4 Long term (current) use of insulin; E11.9 Type 2 diabetes mellitus without complications; Z87.891 Personal history of nicotine dependence
CPT/HCPCS: 36415; 70450; 71045; 80053; 81001; 83605; 83880; 85025; 86592; 87040; 93005; 93010; G0480

== ENCOUNTER 2023-03-16 00:55 | Inpatient (IN) | payer MEDICARE, OTHER ==
[~2023-03-16] VITALS: Ht 177.8 cm; Wt 98.9 kg
[~2023-03-16 00:55] MED LIST changes: +CARV6.25 PO; -GABA300 PO; +INSULIN GL100 UNIT/2 SC; +K-Dur10 MEQ PO; +LOSARTAN POTAS100 MG PO; +Neurontin600 MG PO; +Toviaz8 MG PO; +[UNRECOGNIZED DRUG - CODE] PO
[2023-03-16 03:04] LABS: BASOPHILS ABSOLUTE AUTO 0.04 K/mm3 (0.00-0.23); BASOPHILS PERCENT AUTO 0 % (0-2); EOSINOPHILS ABSOLUTE AUTO 0.04 K/mm3 (0.00-0.68); EOSINOPHILS PERCENT AUTO 0 % (0-6); Hematocrit 48.3 % (37.0-53.0); Hemoglobin 16.4 g/dL (13.5-17.5); IMMATURE GRAN ABSOLUTE AUTO 0.11 K/mm3 (0.00-0.10); IMMATURE GRAN PERCENT AUTO 1 % (0-1); LYMPHOCYTES ABSOLUTE AUTO 1.89 K/mm3 (0.84-5.20); LYMPHOCYTES PERCENT AUTO 16 % (21-46); MONOCYTES ABSOLUTE AUTO 0.87 K/mm3 (0.16-1.47); MONOCYTES PERCENT AUTO 8 % (4-13); Mean Corpuscular HGB 31.8 pg (26.0-34.0); Mean Corpuscular Volume 94 fL (80-100); Mean Platelet Volume 9.3 fL (9.1-12.4); NEUTROPHILS ABSOLUTE AUTO 8.68 K/mm3 (1.96-9.15); NEUTROPHILS PERCENT AUTO 75 % (41-73); Platelet Count 310 K/mm3 (150-400); RDW Coefficient Variation 12.3 % (11.7-14.2); Red Blood Cell Count 5.15 M/mm3 (4.30-5.90); White Blood Cell Count 11.63 K/mm3 (4.00-11.30)
[2023-03-16 03:27] LABS: Albumin, Blood 3.6 g/dL (3.4-5.0); Albumin/Globulin Ratio 0.9 (0.8-1.8); Bilirubin, Total 0.3 mg/dL (0.1-1.0); Bun/Creatinine Ratio 33.9 (12.0-20.0); Calcium, Blood 11.1 mg/dL (8.5-10.1); Creatinine, Blood 1.12 mg/dL (0.60-1.20); Globulin, Blood 3.8 g/dL (2.2-4.0); Potassium, Blood 4.8 mmol/L (3.5-5.5); Total Protein, Blood 7.4 g/dL (6.4-8.2)
[2023-03-16 03:46] LABS: Influenza A, PCR NEGATIVE (NEGATIVE); Influenza B, PCR NEGATIVE (NEGATIVE); Resp Syncytial Virus, PCR NEGATIVE (NEGATIVE); SARS-Cov-2 (COVID-19) PCR, MMC NEGATIVE (NEGATIVE)
[2023-03-16 07:11] LABS: Base Excess Venous 8.6 mmol/L; Bicarbonate Venous 30.2 mmol/L (24.0-30.0); PCO2 Venous 63.1 mmHg (38-42); pH Blood Venous 7.34 (7.34-7.37)
[2023-03-16 08:36] VITALS: BP 162/95
[2023-03-16 13:59] VITALS: BP 152/77
--- NOTE | 2023-03-16 14:00 | NUR ---
CALLED DR MCCABE- PT WOKE ABOUT AN HOUR AGO AND WAS VERY IRRITABLE. HE WAS YELLING THAT HE HAD TO PEE AND HE WAS GOING TO PEE ON THE FLOOR. PT WAS ASSISTED WITH A URINAL, HOWEVER WAS UNABLE TO VOID. BLADDER SCAN SHOWED 421ML. PT DROPPED BACK INTO DEEP SLEEP, RECIEVED A CALL FROM TELEE PT HR RAGHAV DOWN TO 37. THIS RN WENT TO THE ROOM TO FIND THE PT SLEEPING SOUNDLY BREATHING MORE RAPIDLY THAN BEFORE, LUNG SOUNDS WHEEZY, AND CRACKLY. PT ON 3L VIA NC RESP RATE 30. HR DROPPED DOWN TO THE 30'S AGAIN WHILE THIS RN AT THE BEDSIDE SPEAKING TO [employer]. PT HAS NO BREATHING Tx ORDERED AT THIS TIME. PT IS A FULL CODE. CALLED DR MCCABE AND LEFT A MESSAGE, WAITING FOR A CALL BACK.
--- NOTE | 2023-03-16 14:10 | NUR ---
RECIEVED A CALL BACK FROM DR MCCABE- HE IS AWARE OF THE RECENT EVENT NOW, ORDER RECIEVED FOR O2 AND BD PROTOCOL
--- NOTE | 2023-03-16 14:23 | NUR ---
PT WOKE AND WAS AGGITATED- PT WAS YELLING AT STAFF AAND SWATTING AT THEM. PT RIPPED OUT HIS IV AND WAS BLEEDING ON THE PILLOWS AND SHEETS. WAS ABLE TO WRAP THE AREA TO STAUNCH THE BLOOD FLOW. PT IS YELLING AT ALL STAFF TO GET OUT OF HIS ROOM. RT CAME TO EVALUATE THE PT NO Tx INDICATED AT THIS TIME. PT LIKELY HAS ANXIETY AND NEEDS TREATMENT FOR THAT; HOWEVER THE PT HR WAS JUST IN THE 30'S SO ANXIETY MEDS MAY NOT BE ADVIASABLE. PT HAD AN INCONTINENT VOID ATTENDS AND BED SATURATED.
[2023-03-16 16:40] LABS: Source, Urine Clean Catch
[2023-03-16 17:15] LABS: Bilirubin, Urine Neg (Neg); Blood, Urine Neg (Neg); Color, Urine Yellow (P-Yellow); Glucose Qualitative, Urine 4+ (Neg); Ketones, Urine Neg (Neg); Leukocyte Esterase, Urine Neg (Neg); Nitrite, Urine Neg (Neg); Protein, Urine 3+ (Neg); Urobilinogen, Urine NORM (Normal)
[2023-03-16 17:56] LABS: Appearance, Urine Hazy (Clear); Mucus Light (0-Heavy); Red Blood Cells, Urine 0-2 /hpf (0-2); Squamous Epithelial Cells Rare /hpf (Few); White Blood Cells, Urine 0-2 /hpf (0-5)
[2023-03-16 17:57] LABS: Bacteria Mod /hpf
--- NOTE | 2023-03-16 18:20 | NUR ---
SPOKE TO DR MCCABE- THE PT PASSED THE BEDSIDE SWALLOW EVAL AND WAS GIVEN A DIET ORDER ADA HE IS DIABETIC. BG CHECKS CHANGED TO AC/HS. CALLED AND RECIEVED ORDER FOR MEDIUM CORRECTION SCALE INSULIN. PRE MEAL BG 394. WILL MEDICATE ONCE MED IS VERIFIED.
--- NOTE | 2023-03-16 18:24 | NUR ---
SHIFT SUMMARY- PT ADMITTED THROUGH THE ED. PT BECAME ALERT AROUND 1400. NURSING PERFORMED A BEDSIDE SWALLOW EVAL. PT WAS ABLE TO DRINK WATER FROM A CUP, AND A STRAW, APPLESAUCE, COLD PUDDING AND PUDDING MIXED WITH CRACKERS. PT TOLLERATED ALL WITHOUT ANY COUGH OR SIGNS OF ASPIRATION. PT HAS BEEN IN BED SINCE ARRIVAL, HE HAD ONE EPISODE OF URINARY INCONTINENCE. PT IN BED CALL LIGHT IN REACH, PT KNOWS HOW TO PUSH THE BUTTON. PT IS ON IV STEROIDS. BG ELEVATED PRIOR TO DINNER, INSULIN ORDERED AWAITING ARRIVAL TO MEDICATE. PT CURRENTLY EATING DINNER. NO S&S OF DISTRESS.
[2023-03-16 19:42] VITALS: BP 150/88
[2023-03-17 04:47] VITALS: BP 152/85
--- NOTE | 2023-03-17 05:01 | NUR ---
A/O X 2 -3 AT TIMES IS CONFUSED AND SHORT TEMPERED BUT EASILY REDIRECTED. PT CONSTANTLY DEMANDING FLUID, WATER COFFEE AND SODA, I EXPLAINED MULTIPLE TIMES THAT HIS BLOODWORK INDICATED THAT HE HAD FLUID OVERLOAD. PT DIDNT SEEM TO UNDERSTAND SO WHEN HE DEMANDED FLUIDS I WOUD TRY TO REDIRECT HIM, THIS SEEMS TO WORK PT JUST WANTED SOMETHING TO DO WHILE LAYING IN BED. ENC PT TO SLEEP SINCE HE WAS VERY TIRED AND FAMILY STATED HE HADNT SLEPT IN DAYS. URINE IS DARK CALOS AND MINIMAL, URINAL PLACED UNDER THE SHEET IN POSITION SO PT WOULDNT HAVE HARD TIME TRYING TO URINATE. PT COMFORTABLY SLEEPING
[2023-03-17 05:02] LABS: BASOPHILS ABSOLUTE AUTO 0.01 K/mm3 (0.00-0.23); BASOPHILS PERCENT AUTO 0 % (0-2); EOSINOPHILS PERCENT AUTO 0 % (0-6); Hematocrit 42.1 % (37.0-53.0); IMMATURE GRAN ABSOLUTE AUTO 0.11 K/mm3 (0.00-0.10); IMMATURE GRAN PERCENT AUTO 1 % (0-1); LYMPHOCYTES ABSOLUTE AUTO 0.87 K/mm3 (0.84-5.20); LYMPHOCYTES PERCENT AUTO 8 % (21-46); MONOCYTES ABSOLUTE AUTO 0.36 K/mm3 (0.16-1.47); MONOCYTES PERCENT AUTO 3 % (4-13); Mean Corpuscular HGB 31.7 pg (26.0-34.0); Mean Corpuscular HGB Conc 33.3 g/dL (31.5-36.5); Mean Corpuscular Volume 96 fL (80-100); Mean Platelet Volume 9.5 fL (9.1-12.4); NEUTROPHILS ABSOLUTE AUTO 9.72 K/mm3 (1.96-9.15); NEUTROPHILS PERCENT AUTO 88 % (41-73); Platelet Count 228 K/mm3 (150-400); RDW Coefficient Variation 12.1 % (11.7-14.2); RDW Standard Deviation 42.5 fL (35.1-46.3); Red Blood Cell Count 4.41 M/mm3 (4.30-5.90); White Blood Cell Count 11.07 K/mm3 (4.00-11.30)
[2023-03-17 06:04] LABS: Albumin, Blood 2.6 g/dL (3.4-5.0); Albumin/Globulin Ratio 0.8 (0.8-1.8); Bilirubin, Total 0.3 mg/dL (0.1-1.0); Calcium, Blood 9.9 mg/dL (8.5-10.1); Creatinine, Blood 1.05 mg/dL (0.60-1.20); Globulin, Blood 3.1 g/dL (2.2-4.0); Total Protein, Blood 5.7 g/dL (6.4-8.2)
[2023-03-17 07:51] VITALS: BP 178/75
[2023-03-17] MEDS ORDERED: GEMTESA75 MG PO (16:38)
[2023-03-17] MEDS ORDERED: METO25ER PO (16:56)
[2023-03-17] MEDS ORDERED: AMLO5 PO (16:57)
[2023-03-17] MEDS ORDERED: METF500 PO (16:59)
[2023-03-17] MEDS ORDERED: Crestor20 MG PO (16:59)
[2023-03-17] MEDS ORDERED: METRONIDAZOLE TOP (17:03)
[2023-03-17] MEDS ORDERED: OZEMPIC0.25 MG/02 SC (17:04)
[2023-03-17] MEDS ORDERED: KETO15TC TOP (17:04)
--- NOTE | 2023-03-17 18:43 | NUR ---
SHIFT SUMMARY: MORRO IS A&OX3. VSS, NO ACUTE EVENTS THIS SHIFT. PT IS ABLE TO MAKE HIS NEEDS KNOWN. ATTENDS IN PLACE, PT PREFERS TO USE URINAL. OFFERED TO ASSIST PT OOB TO BSC COMMODE THIS SHIFT, PT REFUSED. PT IS ABLE TO TURN AND REPOSITION HIMSELF WITH MINIMAL ASSISTANCE. HE IS TOLERATING PO INTAKE WELL, BUT REPORTS POOR APPETITE. SPUTUM CULTURE SENT, PT HAS PRODUCED SMALL AMOUNTS OF SPUTUM, USING FLUTTER VALVE. PT IS USING 3.5 L VIA NC, DOES NOT USE O2 AT HOME. PT IS LYING IN BED WITH THE CALL LIGHT IN REACH. WCTM UNTIL REPORT IS GIVEN TO BOILERMAKER HELPER RN.
[2023-03-17 19:26] VITALS: BP 168/80
--- NOTE | 2023-03-17 23:01 | NUR ---
REPORT RECEIVED PT A LITTLE MORE AGRESSIVE TODAY TO DIRECTOR OF MATERNITY SERVICES, PT VERBALLY ABUSIVE AND CALLING DIRECTOR OF MATERNITY SERVICES NAMES. i SPOKE WITH PT THAT HE WAS BEING INAPPRORIATE HE WAS NOT ALLOWED TO SPEAK TO DIRECTOR OF MATERNITY SERVICES LIKE THAT. PT DOESNT SEEM TO CARE. i TOLD DIRECTOR OF MATERNITY SERVICES SHE DIDNT HAVE TO ENTER PT ROOM THIS EVENING. PT IS CONFUSED AT TIMES SO i WILL CONT TO MONITOR.
--- NOTE | 2023-03-18 04:48 | NUR ---
PT A LITTLE MORE MANAGEABLE THIS EVENING HAS WANTED TO SLEEP MORE. HR CONSISTANTLY STAYING IN THE 30S AND 40S, O2 MONITOR PLACED IN RM INORDER TO MONITOR PT. PT ASYMPTOMATIC BALTAZAR HEART RATE, AWARE. LAB ATTEMPTING TO DRAW PT BUT PT BEGAN YELLING AND BELITTLING SCALE SHOOTER, BLOOD WAS UNABL TO BE DRAWN, REQUESTED TO HAVE LABS DRAWN AROUND BREAKFAST.
[2023-03-18 07:59] VITALS: BP 152/98
[2023-03-18 09:22] LABS: Albumin, Blood 2.6 g/dL (3.4-5.0); Albumin/Globulin Ratio 0.8 (0.8-1.8); Bilirubin, Total 0.4 mg/dL (0.1-1.0); Bun/Creatinine Ratio 37.4 (12.0-20.0); Calcium, Blood 9.9 mg/dL (8.5-10.1); Creatinine, Blood 0.86 mg/dL (0.60-1.20); Globulin, Blood 3.3 g/dL (2.2-4.0); Potassium, Blood 4.8 mmol/L (3.5-5.5); Total Protein, Blood 5.9 g/dL (6.4-8.2)
[2023-03-18 09:28] LABS: BASOPHILS ABSOLUTE AUTO 0.02 K/mm3 (0.00-0.23); BASOPHILS PERCENT AUTO 0 % (0-2); EOSINOPHILS ABSOLUTE AUTO 0.03 K/mm3 (0.00-0.68); EOSINOPHILS PERCENT AUTO 0 % (0-6); Hematocrit 44.6 % (37.0-53.0); Hemoglobin 15.3 g/dL (13.5-17.5); IMMATURE GRAN ABSOLUTE AUTO 0.17 K/mm3 (0.00-0.10); IMMATURE GRAN PERCENT AUTO 1 % (0-1); LYMPHOCYTES ABSOLUTE AUTO 1.34 K/mm3 (0.84-5.20); LYMPHOCYTES PERCENT AUTO 11 % (21-46); MONOCYTES ABSOLUTE AUTO 0.88 K/mm3 (0.16-1.47); MONOCYTES PERCENT AUTO 7 % (4-13); Mean Corpuscular HGB 31.5 pg (26.0-34.0); Mean Corpuscular HGB Conc 34.3 g/dL (31.5-36.5); Mean Corpuscular Volume 92 fL (80-100); NEUTROPHILS ABSOLUTE AUTO 10.13 K/mm3 (1.96-9.15); NEUTROPHILS PERCENT AUTO 81 % (41-73); RDW Coefficient Variation 11.9 % (11.7-14.2); RDW Standard Deviation 40.3 fL (35.1-46.3); Red Blood Cell Count 4.86 M/mm3 (4.30-5.90); White Blood Cell Count 12.57 K/mm3 (4.00-11.30)
[2023-03-18 13:02] LABS: Mean Platelet Volume 9.1 fL (9.1-12.4); Platelet Count 226 K/mm3 (150-400)
[2023-03-18 15:37] VITALS: BP 129/83
--- NOTE | 2023-03-18 17:16 | NUR ---
SHIFT SUMMARY: CBG AT LUNCH WAS 422; SPOKE TO DR. THACKER, CHANGED SSI TO HIGH SS FROM MEDIUM, ADDED GLARGINE AT HS. ALSO RECEIVED ORDERS FOR BOWEL MEDS PT STATED HE HAS NOT HAD A BM IN "ABOUT 4 DAYS." NO EVENTS ON TELEMETRY, SINUS ARRYTHMIA WITH RATE 60-80'S. LUNG SOUNDS DIM WITH SOME CRACKLES AND RHONCHI. ON O2 @ 4 L/MIN NC; DOES NOT USE OXYGEN AT HOME. REPLACED CONDOM CATH, IS HAVING GOOD OUTPUT. GOT UP TO BR X 1 WITH FWW, GAIT BELT, AND 2 PERSON ASSIST, BUT GAIT IS WEAK AND HE IS TERRIFIED OF FALLING.
[2023-03-18 19:14] VITALS: BP 124/63
--- NOTE | 2023-03-19 02:54 | NUR ---
SHIFT SUMMERY, PT RESTING IN BED AND WAS MEDICATED FOR HS. PT GIVEN MED FOR PAIN. PT SEEMS TO BE RESTING FAIRLY WELL TONIGHT. CALL LIGHT IN REACH.
[2023-03-19 05:07] VITALS: BP 151/79
[2023-03-19 08:03] VITALS: BP 147/80
--- NOTE | 2023-03-19 09:04 | NUR ---
0835- RN WENT INTO ROOM TO ADMINISTER MORNING MEDS. PT STARTED YELLING AT RN TO SHUT UP AND GET OUT OF ROOM BECAUSE HE WAS EATING BREAKFAST. RN INFORMED PT THIS HOSPITAL DOES NOT TOLERATE VERBAL ABUSE AND TO QUIT THIS BEHAVIOR. RN ASKED IF PT WANTED HIS MORNING MEDS AND PT STATED, "I DON'T CARE!!!" CHARGE NURSE MAGDIEL RAZA CAME TO SPEAK WITH PT. PT WAS AGREEABLE TO RECEIVING HIS MORNING MEDS, BUT ONCE THIS RN TRIED TO DEMURRAGE CLERK PT TO HIS IV, PT JERKED HIS ARM AWAY AND SCREAMED AT RN TO "GET THE HELL OUT" OF HIS ROOM. RN INFORMED LUZ MARINA AND LEFT PT'S ROOM.
[2023-03-19 09:40] LABS: BASOPHILS ABSOLUTE AUTO 0.03 K/mm3 (0.00-0.23); BASOPHILS PERCENT AUTO 0 % (0-2); EOSINOPHILS ABSOLUTE AUTO 0.05 K/mm3 (0.00-0.68); EOSINOPHILS PERCENT AUTO 1 % (0-6); Hematocrit 45.7 % (37.0-53.0); Hemoglobin 15.1 g/dL (13.5-17.5); IMMATURE GRAN ABSOLUTE AUTO 0.12 K/mm3 (0.00-0.10); IMMATURE GRAN PERCENT AUTO 1 % (0-1); LYMPHOCYTES ABSOLUTE AUTO 1.31 K/mm3 (0.84-5.20); LYMPHOCYTES PERCENT AUTO 12 % (21-46); MONOCYTES ABSOLUTE AUTO 0.79 K/mm3 (0.16-1.47); MONOCYTES PERCENT AUTO 7 % (4-13); Mean Corpuscular HGB 31.4 pg (26.0-34.0); Mean Corpuscular Volume 95 fL (80-100); Mean Platelet Volume 9.4 fL (9.1-12.4); NEUTROPHILS ABSOLUTE AUTO 8.78 K/mm3 (1.96-9.15); NEUTROPHILS PERCENT AUTO 79 % (41-73); Platelet Count 224 K/mm3 (150-400); RDW Coefficient Variation 12.3 % (11.7-14.2); RDW Standard Deviation 43.2 fL (35.1-46.3); Red Blood Cell Count 4.81 M/mm3 (4.30-5.90); White Blood Cell Count 11.08 K/mm3 (4.00-11.30)
[2023-03-19 09:58] LABS: Albumin, Blood 2.6 g/dL (3.4-5.0); Albumin/Globulin Ratio 0.8 (0.8-1.8); Bilirubin, Total 0.3 mg/dL (0.1-1.0); Bun/Creatinine Ratio 39.9 (12.0-20.0); Calcium, Blood 10.1 mg/dL (8.5-10.1); Creatinine, Blood 0.98 mg/dL (0.60-1.20); Globulin, Blood 3.2 g/dL (2.2-4.0); Potassium, Blood 4.5 mmol/L (3.5-5.5); Total Protein, Blood 5.8 g/dL (6.4-8.2)
--- NOTE | 2023-03-19 10:42 | NUR ---
RN ATTEMPTED TO ADMINISTER MORNING MEDS AGAIN AND WHEN RN ENTERED THE ROOM PT STATED, "NOPE." RN LEFT THE ROOM AND NOTIFIED DR. MERA OF PT'S REFUSAL.
--- NOTE | 2023-03-19 15:01 | NUR ---
Echocardiogram using 0.5ml of Definity contrast performed.
[2023-03-19 16:33] VITALS: BP 158/64
--- NOTE | 2023-03-19 18:43 | NUR ---
SUMMARY- REFER TO ABOVE NOTES FOR REFUSAL OF MEDS/VERBAL AGGRESSION THIS SHIFT. PT MODERATELY COOPERATIVE THIS AFTERNOON/EVENING. X2 ASSIST. AAOX2-3. PT REFUSED MANY TURNS THIS SHIFT AND REFUSED TO GET OOB THIS SHIFT.
--- NOTE | 2023-03-19 18:49 | NUR ---
SACRAL ALLEVYN PLACED ON PT'S SACRUM AND CONDOM CATHETER CHANGED JUST NOW.
[2023-03-19 19:55] VITALS: BP 142/69
--- NOTE | 2023-03-19 20:50 | NUR ---
AWAKE. REQUESTED ASSIST WITH BED CONTROL AND TV CONTROL. THEN ASKED FOR PAIN MEDS AND SLEEP MED. WAS ASSISTED WITH REQUESTS AND ACCEPTED MEDS - SEE MAR FOR DETAILS. CALL LIGHT IN REACH.
--- NOTE | 2023-03-20 03:55 | NUR ---
SHIFT SUMMARY PT ALERT WITH SOME CONFUSION/FORGETFULLNESS. PT TREATED FOR PAIN PER EMAR. TELEMETRY: SR W/PACs @ 89. PT HAD HR OF 43 VIA VITALS MACHINE. NO S/SX AND CONTINUOUS MONITOR SHOWED VSS. CALLED TELE MONITOR WHO REPORTED HR @89. CHECKED CONTINOUS MONITOR AND TELE MONITORS T/O SHIFT. PT IS CURRENTLY ON 3.5 L O2 WITH SATS ABOVE 92%. CONDOM CATH IN PLACE DRAINING DARK YELLOW URINE. PT BECOMES IRRITABLE AT TIMES. REFUSED SOME MEDICATIONS. BED KEPT IN LOWEST POSITION, CALL LIGHT IN REACH AND BED ALARM SET. WILL CONTINUE TO MONITOR UNTIL END OF SHIFT.
[2023-03-20 04:05] VITALS: BP 155/71
[2023-03-20 07:34] VITALS: BP 167/118
[2023-03-20 09:20] LABS: BASOPHILS ABSOLUTE AUTO 0.04 K/mm3 (0.00-0.23); BASOPHILS PERCENT AUTO 0 % (0-2); EOSINOPHILS PERCENT AUTO 0 % (0-6); Hemoglobin 15.8 g/dL (13.5-17.5); IMMATURE GRAN ABSOLUTE AUTO 0.16 K/mm3 (0.00-0.10); IMMATURE GRAN PERCENT AUTO 1 % (0-1); LYMPHOCYTES ABSOLUTE AUTO 0.63 K/mm3 (0.84-5.20); LYMPHOCYTES PERCENT AUTO 5 % (21-46); MONOCYTES ABSOLUTE AUTO 0.41 K/mm3 (0.16-1.47); MONOCYTES PERCENT AUTO 3 % (4-13); Mean Corpuscular HGB 31.3 pg (26.0-34.0); Mean Corpuscular HGB Conc 33.6 g/dL (31.5-36.5); Mean Corpuscular Volume 93 fL (80-100); Mean Platelet Volume 9.5 fL (9.1-12.4); NEUTROPHILS ABSOLUTE AUTO 12.79 K/mm3 (1.96-9.15); NEUTROPHILS PERCENT AUTO 91 % (41-73); Platelet Count 221 K/mm3 (150-400); RDW Coefficient Variation 11.9 % (11.7-14.2); RDW Standard Deviation 41.2 fL (35.1-46.3); Red Blood Cell Count 5.05 M/mm3 (4.30-5.90); White Blood Cell Count 14.03 K/mm3 (4.00-11.30)
[2023-03-20 09:40] LABS: Albumin, Blood 2.6 g/dL (3.4-5.0); Albumin/Globulin Ratio 0.8 (0.8-1.8); Bilirubin, Total 0.4 mg/dL (0.1-1.0); Bun/Creatinine Ratio 42.8 (12.0-20.0); Calcium, Blood 10.1 mg/dL (8.5-10.1); Creatinine, Blood 0.84 mg/dL (0.60-1.20); Globulin, Blood 3.4 g/dL (2.2-4.0); Phosphorus, Blood 2.7 mg/dL (2.5-4.9); Potassium, Blood 5.1 mmol/L (3.5-5.5)
--- NOTE | 2023-03-20 12:35 | NUR ---
DR APARICIO NOTIFIED PATIENT BLOOD SUGAR 401 BEFORE LUNCH. HE STATES HE WILL PUT ADDITIONAL ORDERS OF INSULIN IN A COUPLE MINUTESE.
[2023-03-20 12:51] VITALS: BP 110/69
[2023-03-20 16:47] VITALS: BP 120/64
[2023-03-20 19:48] VITALS: BP 119/67
--- NOTE | 2023-03-20 19:50 | NUR ---
SHIFT SUMMARY PATIENT MORE COOPERATIVE AND PLEASANT THE MORNING WENT ON AFTER BOUNDARY SETTING. PATIENT MEDICATED FOR ELEVATED BLOOD SUGARS WITH INSULIN THROUGHOUT SHIFT. CALL TO DR APARICIO REGARDING 401 PRE LUNCH BG AND ADDITIONAL INSULIN ORDERED WITH EACH MEAL. NO OTHER ACUTE EVENTS DURING SHIFT. BED IN LOW POSITION, CALL LIGHT IN REACH. PATIENT CALLS APPROPRIATELY.
[2023-03-21 04:41] VITALS: BP 148/72
--- NOTE | 2023-03-21 05:17 | NUR ---
SHIFT SUMMARY PT HAS BEEN PLEASANT T/O NIGHT. PT IS ALERT AND ORIENTED TO SELF, PLACE AND TIME WITH CONFUSION. PT IS PLEASANT AND COOPERATIVE WITH CARE. CONDOM CATHETER IS ON WITH ATTENDS IN PLACE. PT HAS RESTED OFF AND ON T/O SHIFT WITH RESPIRATIONS EVEN. OXYGEN IS AT 3.5LPM VIA NASAL CANNULA. BED IS LOCKED IN THE LOWEST POSITION WITH CALL LIGHT IN REACH. NO S/S OF DISTRESS NOTED AT THIS TIME.
[2023-03-21 07:31] VITALS: BP 155/98
[2023-03-21 15:56] VITALS: BP 150/110
[2023-03-21 19:27] VITALS: BP 140/80
--- NOTE | 2023-03-21 19:55 | NUR ---
SHIFT SUMMARY PATIENT SLEEPING MOST OF DAY, COOPERATIVE WITH CARE, WAS AGREABLE TO WORK WITH PT AND OT TODAY, HE GOT UP TO CHAIR 1-2 PERSON MIN ASSIST FOR 1 HOUR IN CHAIR. PATIENT VERBALIZED CONCERN OF CAREGIVER OUT OF TOWN THIS WEEK AND NO OTHER CAREGIVERS AVAILABLE. PUSH BENCH OPERATOR HELPER EXPLAINED HOME CARE AGENCIES TO HIM AND OFFERED LIST OF AGENCIES LOCAL. PATIENT EXPRESSED INTEREST IN THIS. PATIENT DENIES PAIN TODAY, MEDICATED PER EMAR. BED IN LOW POSITION. CALL LIGHT IN REACH. PATIENT CALLS MINIMALLY.
--- NOTE | 2023-03-22 00:40 | NUR ---
ASSUQMED CARE OF PT, PT SLEEPING VSS, MEDICATED PER AUG, SPOKE WITH MD ABOUT ANTIFUNGAL POWDER FOR PT GROIN. REPORT GIVEN TO MARION HAND OVER PT.
[2023-03-22 03:27] VITALS: BP 139/55
[2023-03-22 05:25] LABS: BASOPHILS ABSOLUTE AUTO 0.03 K/mm3 (0.00-0.23); BASOPHILS PERCENT AUTO 0 % (0-2); EOSINOPHILS ABSOLUTE AUTO 0.15 K/mm3 (0.00-0.68); EOSINOPHILS PERCENT AUTO 2 % (0-6); Hematocrit 39.2 % (37.0-53.0); Hemoglobin 12.8 g/dL (13.5-17.5); IMMATURE GRAN PERCENT AUTO 1 % (0-1); LYMPHOCYTES ABSOLUTE AUTO 1.64 K/mm3 (0.84-5.20); LYMPHOCYTES PERCENT AUTO 19 % (21-46); MONOCYTES PERCENT AUTO 8 % (4-13); Mean Corpuscular HGB 31.6 pg (26.0-34.0); Mean Corpuscular HGB Conc 32.7 g/dL (31.5-36.5); Mean Corpuscular Volume 97 fL (80-100); Mean Platelet Volume 9.7 fL (9.1-12.4); NEUTROPHILS ABSOLUTE AUTO 6.24 K/mm3 (1.96-9.15); NEUTROPHILS PERCENT AUTO 71 % (41-73); Platelet Count 202 K/mm3 (150-400); RDW Coefficient Variation 12.2 % (11.7-14.2); RDW Standard Deviation 43.5 fL (35.1-46.3); Red Blood Cell Count 4.05 M/mm3 (4.30-5.90); White Blood Cell Count 8.86 K/mm3 (4.00-11.30)
[2023-03-22 06:02] LABS: Albumin/Globulin Ratio 0.7 (0.8-1.8); Bilirubin, Total 0.3 mg/dL (0.1-1.0); Bun/Creatinine Ratio 43.6 (12.0-20.0); Calcium, Blood 9.8 mg/dL (8.5-10.1); Creatinine, Blood 1.17 mg/dL (0.60-1.20); Globulin, Blood 2.7 g/dL (2.2-4.0); Potassium, Blood 4.9 mmol/L (3.5-5.5); Total Protein, Blood 4.7 g/dL (6.4-8.2)
--- NOTE | 2023-03-22 06:03 | NUR ---
SHIFT SUMMARY 82 YR M ADMITTED ON 03/16/23 FOR PNEUMONIA. FULL CODE. NO ACUTE CHANGES THIS SHIFT. ASSUMED CARE OF PT AT APPROX 2200 AND HE HAS SLEPT THROUGH THIS SHIFT. VSS STABLE AND CURRENTLY ON 2 L O2 BY MS. BED IS IN LOW POSITION AND CALL LIGHT IS WITHIN REACH.
[2023-03-22 08:04] VITALS: BP 154/83
[2023-03-22 14:38] VITALS: BP 136/57
[2023-03-22 14:39] VITALS: BP 136/57
--- NOTE | 2023-03-22 17:38 | NUR ---
SHIFT SUMMARY: NO ACUTE EVENTS. MOOD HAS BEEN LABILE TODAY, IRRITABLE TO COOPERATIVE. A&O X 2, FORGETFUL AND CONFUSED. HAD LARGE BM THIS AFTERNOON. GOT UP TO CHAIR X 1. INCONTINENT OF URINE, ATTENDS IN PLACE. RASH IN RICHIE AREA, GROIN, AND PENIS, LIKELY FROM CONSTANT MOISTURE. ON O2 @ 2 L/MIN NC, O2 SATS 92-94%; O2 SAT INCREASES TO 96-97% WHEN SITTING IN CHAIR AND TRANSFERRING. HAD VISIT FROM SON VANESA, WHO IS LOOKING IN TO NEW BUSINESS DEVELOPMENT RECRUITER FOR WHEN PT IS D/C'D.
[2023-03-22 19:26] VITALS: BP 152/67
--- NOTE | 2023-03-23 05:42 | NUR ---
REPORT RECEIVED VSS, PT VERY PLEASENT TODAY AND NOT GRUMPY AT ALL, HAS EXPRESSED HIS THANKS FOR ALL THE WORK WE HAVE BEEN DOING, CALLED APPROPRIATLY THUS FAR. NO C/O PAIN JUST C/O INSOMNIA WHICH HE WAS MEDICATED FOR BUT HAD LITTLE EFFECT. PT VERY INCONT OF URINE AND HAS BEEN CHANGED SEVERAL TIMES. ANTIFUNGAL POWDER APPLIED TO PT GROIN AREA. AWAKE AND ALERT, WILL CONT TO MONITOR
[2023-03-23 07:20] VITALS: BP 169/94
[2023-03-23 07:27] LABS: BASOPHILS ABSOLUTE AUTO 0.01 K/mm3 (0.00-0.23); BASOPHILS PERCENT AUTO 0 % (0-2); EOSINOPHILS ABSOLUTE AUTO 0.02 K/mm3 (0.00-0.68); EOSINOPHILS PERCENT AUTO 0 % (0-6); Hematocrit 39.9 % (37.0-53.0); Hemoglobin 13.4 g/dL (13.5-17.5); IMMATURE GRAN ABSOLUTE AUTO 0.09 K/mm3 (0.00-0.10); IMMATURE GRAN PERCENT AUTO 1 % (0-1); LYMPHOCYTES ABSOLUTE AUTO 1.23 K/mm3 (0.84-5.20); LYMPHOCYTES PERCENT AUTO 12 % (21-46); MONOCYTES ABSOLUTE AUTO 0.73 K/mm3 (0.16-1.47); MONOCYTES PERCENT AUTO 7 % (4-13); Mean Corpuscular HGB 31.8 pg (26.0-34.0); Mean Corpuscular HGB Conc 33.6 g/dL (31.5-36.5); Mean Corpuscular Volume 95 fL (80-100); Mean Platelet Volume 9.6 fL (9.1-12.4); NEUTROPHILS ABSOLUTE AUTO 8.35 K/mm3 (1.96-9.15); NEUTROPHILS PERCENT AUTO 80 % (41-73); Platelet Count 215 K/mm3 (150-400); Red Blood Cell Count 4.21 M/mm3 (4.30-5.90); White Blood Cell Count 10.43 K/mm3 (4.00-11.30)
[2023-03-23 07:44] LABS: Bun/Creatinine Ratio 45.1 (12.0-20.0); Calcium, Blood 9.6 mg/dL (8.5-10.1); Creatinine, Blood 1.02 mg/dL (0.60-1.20); Potassium, Blood 5.1 mmol/L (3.5-5.5)
[2023-03-23 15:24] VITALS: BP 130/77
--- NOTE | 2023-03-23 17:41 | NUR ---
SHIFT SUMMARY: PATIENT AWAKE, ALERT AND ORIENTED TO SELF, PLACED AND CURRENT SITUATION. PATIENT IS CALM, PLEASANT AND COOPERATIVE c CARE. PATIENT DENIES CP/PRESSURE, N/V, SOB, AND DIZZINESS. PATIENT HAD HOME O2 EVAL EARLIER THIS AM. PER RT AT REST ON RA PATIENT 02 92%, c EXRECISE WITHOUT O2 WAS 94%. PATIENT WAS PLACED ON RA AT AOUND 0915. PATIENT SPO2 T/O SHIFT RANGES 92-95% ON RA. LUNGS STILL COARSE, CRACKLES AND WHEEZY T/O TO AUSCULTATIONS. RECEIVED OT DOSE PO LASIX THIS AM. PATIENT WORK c OT/PT MOBILITY THIS PM AND ABLE TO SIT UP IN THE CHAIR FOR ABOUT 2 HRS THIS SHIFT. PATIENT IS INCONTINENCE OF BLADDER, RICHIE CARE AND ATTENDS CHANGED T/O SHIFT. PATIENT RECEIVED SCHEDULED BOWEL REGIMEN AND NO BM THIS SHIFT. PATIENT BS RANGES [phone], RECEIVED INSULIN PER EMAR COVERAGE. VITAL SIGNS REVIEWED. PIV TO L FOREARM SALINE LOCKED. BED ALARM ON FOR SAFETY. CALL LIGHT IN REACH.
[2023-03-23 19:38] VITALS: BP 168/76
--- NOTE | 2023-03-24 05:54 | NUR ---
SHIFT SUMMARY PT ALERT AND ORIENTED TO SELF AND PLACE WITH CONFUSION AND FORGETFULNESS. PTS MOOD HAS BEEN LABILE TODAY, IRRITABLE TO COOPERATIVE WITH CARE AT TIMES. PT DENIES CHEST PAIN/PRESSURE/TIGHTNESS. PT REQUESTED MEDICATION TO HELP WITH SLEEP AND AGITATION-MEDICATED PER EMAR. PT SLEPT T/O MOST OF SHIFT WITH EQUAL AND UNLABORED RESPIRATIONS. PT INCONTINENT OF BLADDER, ATTENDS IN PLACE. NO S/S OF DISTRESS NOTED AT THIS TIME.
[2023-03-24 06:21] LABS: BASOPHILS ABSOLUTE AUTO 0.01 K/mm3 (0.00-0.23); BASOPHILS PERCENT AUTO 0 % (0-2); EOSINOPHILS ABSOLUTE AUTO 0.04 K/mm3 (0.00-0.68); EOSINOPHILS PERCENT AUTO 1 % (0-6); Hematocrit 39.4 % (37.0-53.0); Hemoglobin 13.2 g/dL (13.5-17.5); IMMATURE GRAN ABSOLUTE AUTO 0.09 K/mm3 (0.00-0.10); IMMATURE GRAN PERCENT AUTO 1 % (0-1); LYMPHOCYTES ABSOLUTE AUTO 1.52 K/mm3 (0.84-5.20); LYMPHOCYTES PERCENT AUTO 20 % (21-46); MONOCYTES ABSOLUTE AUTO 0.65 K/mm3 (0.16-1.47); MONOCYTES PERCENT AUTO 8 % (4-13); Mean Corpuscular HGB 31.3 pg (26.0-34.0); Mean Corpuscular HGB Conc 33.5 g/dL (31.5-36.5); Mean Corpuscular Volume 93 fL (80-100); Mean Platelet Volume 9.6 fL (9.1-12.4); NEUTROPHILS ABSOLUTE AUTO 5.49 K/mm3 (1.96-9.15); NEUTROPHILS PERCENT AUTO 70 % (41-73); Platelet Count 215 K/mm3 (150-400); RDW Standard Deviation 41.2 fL (35.1-46.3); Red Blood Cell Count 4.22 M/mm3 (4.30-5.90)
[2023-03-24 06:42] LABS: Bun/Creatinine Ratio 46.8 (12.0-20.0); Calcium, Blood 9.8 mg/dL (8.5-10.1); Creatinine, Blood 0.9 mg/dL (0.60-1.20); Potassium, Blood 4.7 mmol/L (3.5-5.5)
[2023-03-24 08:01] VITALS: BP 184/82
[2023-03-24 10:00] VITALS: BP 154/75
[2023-03-24] MEDS ORDERED: TAMS.4ER PO (12:41)
[2023-03-24] MEDS ORDERED: NYSTATIN100000 U13 MT (12:45)
--- NOTE | 2023-03-24 13:01 | NUR ---
SHIFT/DISCHARGE SUMMARY: PATIENT IS AWAKE, ALERT AND ORIENTED TO SELF, PLACED AND CURRENT SITUATIONS. PATIENT DENIES CP/PRESSURE, DIZZINESS, SOB AND N/V. PATIENT REPORTS PAIN TO LOWER BACK, MEDICATED c PO TYLENOL c GOOD EFFECT. PATIENT ON RA, c SPO2 OF 95%. LUNGS STILL COARSE AND CRACKLES T/O TO AUSCULTATION. PATIENT IS INCONTINENCE OF BLADDER, RICHIE CARE AND ATTENDS CHANGED. PATIENT RECEIVED SCHEDULED IV ABX, PO AND SUB Q PER EMAR. VITAL SIGNS REVIEWED. PIV TO L DIAN DC'Abhi. PATIENT DISCHARGE HOME DISCHARGE INSTRUCTION PACKET GIVEN TO SON (VANESA). EDUCATE PATIENT AND SON REGARDING ADMITTING DX'S OF PNEUMONIA, S/S, TX, SELF CARE AND NEW PRESCRIBED MEDS TO HOME. PATIENT AND SON VERBALIZED UNDERSTANDING AND NO FURTHER QUESTIONS. RX WAS FAXED TO PATIENT PREFERRED PHARMACY ([facility] IN [place] ALL PATIENT PERSONAL BELONGINGS WERE SENT HOME c THE PATIENT. PATIENT LEFT THE ROOM AT 1300 AND WAS TRANSPORTED VIA WHEELCHAIR.
== END 2023-03-24 13:01 | disposition home health service (06) | DRG 871 ==
LOC: ER 00:55 → ERHOLD 05:59 → MEDS 05:59
PROVIDERS: Family Medicine; Hospitalist; Internal Medicine; Student in an Organized Health Care Education/Training Program; ADMIT Internal Medicine
PROC: B24BZZZ Ultrasonography of Heart with Aorta (ICD-10-PCS; principal; 2023-03-19)
DX: A41.9 Sepsis, unspecified organism (principal); G92.8 Other toxic encephalopathy; J18.9 Pneumonia, unspecified organism; J96.01 Acute respiratory failure with hypoxia; I50.33 Acute on chronic diastolic (congestive) heart failure; J44.0 Chronic obstructive pulmonary disease with (acute) lower respiratory infection; J98.11 Atelectasis; I13.0 Hypertensive heart and chronic kidney disease with heart failure and stage 1 through stage 4 chronic kidney disease, or unspecified chronic kidney disease; B37.0 Candidal stomatitis; J44.1 Chronic obstructive pulmonary disease with (acute) exacerbation; Z11.52 Encounter for screening for COVID-19; I25.10 Atherosclerotic heart disease of native coronary artery without angina pectoris; E11.42 Type 2 diabetes mellitus with diabetic polyneuropathy; E11.22 Type 2 diabetes mellitus with diabetic chronic kidney disease; K59.00 Constipation, unspecified; N18.30 Chronic kidney disease, stage 3 unspecified; E11.65 Type 2 diabetes mellitus with hyperglycemia; F03.B0 Unspecified dementia, moderate, without behavioral disturbance, psychotic disturbance, mood disturbance, and anxiety; E21.0 Primary hyperparathyroidism; N40.0 Benign prostatic hyperplasia without lower urinary tract symptoms; E78.5 Hyperlipidemia, unspecified; I49.3 Ventricular premature depolarization; I49.1 Atrial premature depolarization; Z88.1 Allergy status to other antibiotic agents; Z87.19 Personal history of other diseases of the digestive system; Z95.0 Presence of cardiac pacemaker; Z95.5 Presence of coronary angioplasty implant and graft; Z87.891 Personal history of nicotine dependence; Z79.4 Long term (current) use of insulin
CPT/HCPCS: 0241U; 36415; 71045; 71046; 80048; 80053; 81001; 82803; 82947; 83605; 83735; 83880; 84100; 84145; 85025; 85049; 87040; 87070; 87086; 87205; 87449; 93005; 93010; 94640; 94644; 94664; 94667; 94760; 94761; 94762; 96365; 96375; 97130; 97162; 97165; 97530; 97535; 99285-25; A9270; C8929; J0456; J0696; J1650; J1815; J1940; J2920; J2930; J7030; J7050; J7512; Q9957

== ENCOUNTER 2023-05-01 08:48 | Observation (INO) | payer MEDICARE, OTHER ==
[~2023-05-01] VITALS: Ht 177.8 cm; Wt 84.3 kg
[~2023-05-01 08:48] MED LIST changes: +Crestor20 MG PO; +FURO40 PO; +GEMTESA75 MG PO; +KETO15TC TOP; +METF500 PO; +METO25ER PO; +METRONIDAZOLE TOP; +NYSTATIN100000 U13 MT; +OZEMPIC0.25 MG/02 SC
[2023-05-01 09:11] LABS: Source, Urine Clean Catch
[2023-05-01 09:14] LABS: Bilirubin, Urine Neg (Neg); Blood, Urine 3+ (Neg); Color, Urine Yellow (P-Yellow); Glucose Qualitative, Urine 4+ (Neg); Ketones, Urine 3+ (Neg); Leukocyte Esterase, Urine Neg (Neg); Nitrite, Urine Neg (Neg); Protein, Urine 4+ (Neg); Specific Gravity, Urine 1.015 (1.003-1.022); Urobilinogen, Urine NORM (Normal)
[2023-05-01 09:24] LABS: Appearance, Urine Hazy (Clear)
[2023-05-01 09:25] LABS: Bacteria Rare /hpf; Squamous Epithelial Cells Rare /hpf (Few); White Blood Cells, Urine 0-2 /hpf (0-5)
[2023-05-01 09:26] LABS: Hyaline Casts 0-2 /lpf (0-2)
[2023-05-01 09:44] LABS: BASOPHILS ABSOLUTE AUTO 0.04 K/mm3 (0.00-0.23); BASOPHILS PERCENT AUTO 0 % (0-2); EOSINOPHILS PERCENT AUTO 0 % (0-6); Hematocrit 43.3 % (37.0-53.0); Hemoglobin 14.6 g/dL (13.5-17.5); IMMATURE GRAN ABSOLUTE AUTO 0.05 K/mm3 (0.00-0.10); IMMATURE GRAN PERCENT AUTO 1 % (0-1); LYMPHOCYTES ABSOLUTE AUTO 0.95 K/mm3 (0.84-5.20); LYMPHOCYTES PERCENT AUTO 9 % (21-46); MONOCYTES ABSOLUTE AUTO 0.69 K/mm3 (0.16-1.47); MONOCYTES PERCENT AUTO 7 % (4-13); Mean Corpuscular HGB 31.3 pg (26.0-34.0); Mean Corpuscular HGB Conc 33.7 g/dL (31.5-36.5); Mean Corpuscular Volume 93 fL (80-100); Mean Platelet Volume 8.8 fL (9.1-12.4); NEUTROPHILS ABSOLUTE AUTO 8.66 K/mm3 (1.96-9.15); NEUTROPHILS PERCENT AUTO 83 % (41-73); Platelet Count 246 K/mm3 (150-400); RDW Coefficient Variation 12.6 % (11.7-14.2); RDW Standard Deviation 42.8 fL (35.1-46.3); Red Blood Cell Count 4.67 M/mm3 (4.30-5.90); White Blood Cell Count 10.39 K/mm3 (4.00-11.30)
[2023-05-01 10:29] LABS: Albumin, Blood 2.9 g/dL (3.4-5.0); Albumin/Globulin Ratio 0.8 (0.8-1.8); Bilirubin, Total 0.6 mg/dL (0.1-1.0); Bun/Creatinine Ratio 29.9 (12.0-20.0); Creatinine, Blood 0.9 mg/dL (0.60-1.20); Globulin, Blood 3.7 g/dL (2.2-4.0); Total Protein, Blood 6.6 g/dL (6.4-8.2)
[2023-05-01] MEDS ORDERED: Aspir 8181 MG PO (15:18)
[2023-05-01] MEDS ORDERED: CARV25 PO (15:18)
[2023-05-01] MEDS ORDERED: LOSARTAN POTAS100 M1 PO (15:21)
[2023-05-01 15:56] VITALS: BP 194/129
--- NOTE | 2023-05-01 17:46 | NUR ---
ED Palliative Care Consult Spoke with ED Provider Noman, Dr Ramos, and discussed case. Pt has history of Dementia, to the ED today with subdural hematoma and midline shift. Family may benefit from goals of care conversation. Pt resting on gurney upon arrival. Pt does not engaged much in conversation but when he does he appears confused. Both sons Eleazar and Bk at bedside. Engaged in therapeutic conversation regarding goals of care. Both sons confirm Pt's quality of life has declined over the recent months and he would want to focus on comfort. They both confirm code status wishes of DNR. They are requesting assistance with placement with hospice services. Spoke with ED RN Legal Job Titles Yvette and relayed information. Palliative Care will remain available
--- NOTE | 2023-05-02 05:14 | NUR ---
REPORT RECEIVED, VERIFIED. PT LAYING ON LEFT SIDE AND NEAR NAKED, PT VERY SLOW TO RESPOND, MAKES NOISES IF TRYING TO ANSWER THEN FALLS BACK ASLEEP. ASPIRATION PRECAUSIONS BUT WHEN MEDS WERE DUE I FIRST GAVE SOME YOGURT WHICH PT BALTAZAR WELL, THEN I GAVE SO H2O AND PT DIDNT HAVE ANY TROUBLE WITH SMALL SIPS. WILL CONT TO MONITOR. PT VERY INC AND CHANGED MULTIPLE TIMES, PT COMPLIANT AND SEEMS LIKE HE ATTEMPTS TO HELP WHEN EVER HE CAN.
--- NOTE | 2023-05-02 12:08 | NUR ---
SUPPORTIVE VISIT FROM PALLIATIVE CARE OFFERED THERAPUTIC LISTENING RE: COMFORT CARE STATUS AND PURSING HOME HOSPICE CARE. BOTH SONS, VANESA AND JERRY AT BEDSIDE. THEY ARE CURRENTLY CALLING IN HOME CAREGIVERS, CHECKING ON AVAILABLE ASSISTANCE IN PT'S HOME. BOTH SONS EXPRESSED, FAMILY IS NOT ABLE TO CARE FOR PT AT HOME WITHOUT CAREGIVERS AND HOSPICE CARE IN PLACE. POLST FORM FILLED OUT TO REFLECT DNR/COAL PASSER PER BOTH SONS REQUEST. POLST FORM SIGNED BY VANESA ON BEHALF OF PT. POLST LEFT AT ROOM FOR DR TO SIGN. PRIMARY RN ADVISED OF THIS PC RN'S VISIT. NOTIFIED CARE MANAGEMENT OF FAMILY INTENTION OF PURSUING HOME CAREGIVERS. IF FAMILY IS NOT ABLE TO FIND CAREGIVERS THEY WILL LOOK AT SKILLED NURSING CARE OPTIONS.
--- NOTE | 2023-05-02 17:53 | NUR ---
SHIFT SUMMARY: ON COMFORT CARE. FAMILY AT BEDSIDE MOST OF THE DAY. PT IS MOST COMFORTABLE LYING ON HIS LEFT SIDE, IS QUITE PAINFUL FOR HIM TO MOVE. CONDOM CATH PLACED TO HELP MANAGE URINE. MEDICATED FOR PAIN PER EMAR. BREATHING LABORED AT TIMES.
[2023-05-03] MEDS ORDERED: ALBU2.5V5 INH (00:04)
[2023-05-03] MEDS ORDERED: NOVOLOG FL100 UNIT/3 SC (00:05)
[2023-05-03] MEDS ORDERED: Crestor20 MG PO (00:07)
[2023-05-03] MEDS ORDERED: GEMTESA75 MG PO (00:13)
[2023-05-03] MEDS ORDERED: OZEMPIC0.25 MG/02 SC (00:13)
[2023-05-03] MEDS ORDERED: TAMS.4ER PO (00:13)
--- NOTE | 2023-05-03 06:37 | NUR ---
SHIFT SUMMARY PT IS HERE WITH A SUBDURAL HERATOMA AFTER SUFFERING FROM FALLING AT HOME. PT IS CURRENTLY ON COMFORT CARE AND HAS RECEIVED PAIN MEDICATION DURING THE NIGHT. 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 BED IS IN LOWEST POSITION, CALL LIGHT IS WITHIN REACH.
--- NOTE | 2023-05-03 17:16 | NUR ---
SHIFT SUMMARY; PATEINT REMAINS ON COMFORT CARE. FAMILY VISITS PATIENT DURING DAY. PATIENT ROUSES TO VERBAL STIMULI AND RETURNS TO SLEEP ALMOST IMMEDIATELY. HE IS PROVIDED WITH A BEDBATH AND HIS CONDOM CATHETER REMAINS IN PLACE. LUNGS SOUNDS ARE MOIST AND HE COUGHS TO CLEAR HIS THROAT FROM SECRETIONS.
--- NOTE | 2023-05-04 04:53 | NUR ---
SHIFT SUMMERY, PT RESTING IN BED, PT NOT VERBAL BUT OPENS EYES WHEN SPOKEN TO. PT BREATHING IRREGULAR WITH OCCASIONAL 30 SEC APNIC PERIODS. PT MEDICATED X 2 SO FAR THIS SHIFT. PT SEEMING VERY RESTLESS AND UNCOMFORTABLE. PT SEEMING MORE COMFORTABLE AND MOVING AROUND LESS AFTER MEDS GIVEN. CALL LIGHT IN REACH BED ALARM ON.
--- NOTE | 2023-05-04 15:00 | NUR ---
Comfort Care Visit Pt resting in bed with his eyes closed. Pt appears comfortable with no S/S of distress at this time. Pt's family at bedside. Offered therapeutic listening and answered questions. Spoke with Assigned RN Ecommerce Marketing Manager and discussed case. Family waiting on return phone calls to set up caregiver support at home. Plan for hospice once caregiver support is established. Obtained copies of signed POLST. Delivered copy to medical records via hospital tube system. Placed 2 copies of POLST in chart (1 copy for transport, 1 copy for hospice agency). Provided orginal copy of POLST to Pt's son Bk. Palliative Care will remain available
--- NOTE | 2023-05-04 17:49 | NUR ---
COMFORT CARE SUMMARY PATIENT MEDICATED X3 FOR PAIN, X2 FOR SECRETIONS. PATIENT OCCASSIONALLY RESPONDS TO TOUCH. PATIENT DOES OCCASSIONALLY GET RESTLESS AND REACH OUT. PATIENT REPOSITIONED FOR COMFORT THROUGHOUT SHIFT. PATIENT FAMILY AT BEDSIDE FOR MOST OF SHIFT. PATIENT COMFORTABLE AND RESTING AT END OF SHIFT.
--- NOTE | 2023-05-05 05:26 | NUR ---
SHIFT SUMMERY. PT RESTING IN BED, PT STILL WORKING HARD TO BREATH WITH SOME APNIA UP TO 30 SECT BEFORE A BREATH. PT GIVEN ATROPINE GTT FOR SECRETIONS AND MEDICATED SEVERAL TIMES FOR PAIN. PT CHANGED AND REPOSITIONED , PT VERY FEARFULL OF FALLING AND WILL GRAB RAIL WHEN BEING TURNED WITH ALL HIS MIGHT . PT NOT SEEMING TO UNDERSTAND WHEN TOLD HE IS JUST BEING TURNED AND WILL NOT FALL. CALL LIGHT IN REACH.
--- NOTE | 2023-05-05 08:11 | NUR ---
UPON ARRIVING TO PT ROOM TO ADJUST PT TO COMFORTABLE POSITION IN BED THIS RN NOTICED PT LABOY IN FACE AND NOT TAKING ANY RESPIRATIONS. CHEST AUSCULTATED BY BOTH MYSELF AND STEEL HANDLER WITH NO BEATS PRESENT. STERNAL RUB PERFORMED W/O MOVEMENT. PUPILS NON REACTIVE. TOD CALLED @0800. DR. ESPINOZA CALLED BY THIS RN. PALLIATIVE, SECOND STEEL HANDLER, AND HEALTH CLINICIAN CALLED BY STEEL HANDLER. PALLIATIVE TO CALL FAMILY.
--- NOTE | 2023-05-05 08:19 | NUR ---
Rcd call from charge histotechnologist of pt's passing this morning, apx [phone]. Phoned pt's son, Bk to notify him of Mr. Lew's passing. Offered condolences and theraputic listening. Bk request pt's care be transfered to [facility] [place]. He denies wanting to come see pt and requests that pt's clothing, effects be sent with pt to the home. websphere commerce consultant notified of results from phone call with son, Bk.
--- NOTE | 2023-05-05 09:53 | NUR ---
PT PICKED UP BY [facility] FROM HOME @[id number]
== END 2023-05-05 08:00 ==
LOC: ER 08:48 → MEDS 08:49
PROVIDERS: Student in an Organized Health Care Education/Training Program; ADMIT Internal Medicine
DX: S06.5XAA Traumatic subdural hemorrhage with loss of consciousness status unknown, initial encounter (principal); G30.9 Alzheimer's disease, unspecified; F02.80 Dementia in other diseases classified elsewhere, unspecified severity, without behavioral disturbance, psychotic disturbance, mood disturbance, and anxiety; I25.10 Atherosclerotic heart disease of native coronary artery without angina pectoris; Z95.1 Presence of aortocoronary bypass graft; N18.30 Chronic kidney disease, stage 3 unspecified; J44.9 Chronic obstructive pulmonary disease, unspecified; G47.33 Obstructive sleep apnea (adult) (pediatric); N40.0 Benign prostatic hyperplasia without lower urinary tract symptoms; I50.32 Chronic diastolic (congestive) heart failure; I13.0 Hypertensive heart and chronic kidney disease with heart failure and stage 1 through stage 4 chronic kidney disease, or unspecified chronic kidney disease; Z51.5 Encounter for palliative care; Z66 Do not resuscitate
CPT/HCPCS: 70450; 71046; 74177; 80053; 81001; 83605; 83880; 85025; 93005; 93010; 94760; 96365; 96375; 99285-25; A9270; G0378; J1100; J1953; Q9967